=== PATIENT | male | born 1985 | race Caucasian/White ===

== ENCOUNTER 2017-01-06 00:21 | Emergency (ER) | payer BC, OTHER ==
[~2017-01-06] VITALS: Ht 172.7 cm; Wt 95.9 kg
[~2017-01-06 00:21] MED LIST: IBUP-103 PO; MELA1TAB3 PO; OXYC1TAB3 PO; PRED20TA PO
[2017-01-06 00:27] VITALS: TEMP 37; Ht 172.7 cm; Wt 95.9 kg
[2017-01-06] MEDS ORDERED: HYDROCODONE/ACETAMINOPHEN 7.5/325MG TAB PO STA (00:59)
--- NOTE | 2017-01-06 01:01 | EMERGENCY ROOM VISIT NOTE ---
History Report prepared by Svenibandrea: Sraay Landrum Under the Supervision of: Dr. Breanne Gerardo M.D. First contact with patient: 00:53 Chief Complaint: SHOULDER PAIN Stated Complaint: RIGHT SHOULDER PAIN,FEELS COLD History of Present Illness The patient is a 31 year old male who presents to the Emergency Room with complaints of worsening right shoulder pain over the past week. The pain is worse with movement of his right shoulder. He notes that the pain radiates through his right arm. The patient has had right shoulder problems for several months and states his pain is usually a dull ache; however, his pain has been worse over the past week. The patient's work requires frequent lifting of up to 50 pounds. While he was at work last night, his pain worsened significantly. Currently, he notes that his right hand feels slightly cold and his right arm feels somewhat numb. He does not have a history of a dislocation. He has tried taking Advil and Tylenol arthritis for his pain with no relief. Source of History: patient Onset: a week ago Position: shoulder (right) Timing: worsening Modifying Factors (Worsening): movement Associated Symptoms: + numbness (right arm) Note: Other symptoms: cold right hand Review of Systems See HPI for pertinent positives & negatives. A total of 6 systems reviewed and were otherwise negative. Past Medical & Surgical Medical Problems: (1) GI bleed (2) Strep tonsillitis (3) Tonsillar hypertrophy Family History Cancer Diabetes mellitus Heart disease Hypertension Social History Smoking Status: Current Every Day Smoker Alcohol Use: none Drug Use: none Marital Status: single Housing Status: lives alone Occupation Status: employed Current/Historical Medications Scheduled Ibuprofen Tab (Advil), 600 MG PO PRN UD Allergies Coded Allergies: Lactose (Unverified Allergy, Unknown, ., 01/06/17) Shellfish (Unverified Allergy, Unknown, ., 01/06/17) Physical Exam Vital Signs Date Time Temp Pulse Resp B/P Pulse Ox O2 Delivery O2 Flow Rate FiO2 01/06/17 02:25 73 20 156/82 98 01/06/17 00:27 37.0 81 18 137/84 97 Room Air Physical Exam Vital signs reviewed. General: Well-appearing 31 year old male, in no significant distress. HEENT: No scleral icterus, PERRLA, neck supple. Atraumatic. Musculoskeletal: Atraumatic, no peripheral edema. Tender to palpation over the right proximal biceps tendon with limited range of motion to rotator cuff exam due to pain in most directions. Full strength. Neurologic: Patient awake alert and oriented x 3 Skin: Warm, dry, no rash Medical Decision & Procedures ER Provider Diagnostic Interpretation: Right shoulder x-ray 2 view per my interpretation: No fracture, no dislocation. Medications Administered Medications (Trade) Dose Ordered Sig/Coco Route Start Time Stop Time Status Last Admin Dose Admin Acetaminophen/ Hydrocodone Bitart ([place] 7.5/325 Tab) 1 tab NOW STAT PO 01/06/17 00:59 01/06/17 01:01 DC 01/06/17 01:14 1 TAB ED Course 0056: The patient was evaluated in room C3. A complete history and physical examination was performed. 0059: Ordered [place] 7.5/325 1 tab PO. 0228: Upon reevaluation, the patient was resting comfortably. I discussed findings with him. He verbalized agreement of the treatment plan. The patient was discharged home. Medical Decision Differential includes but is not limited to rotator cuff injury, bony fracture, shoulder dislocation, muscular strain, tendonitis, radiculopathy. This patient was evaluated and appeared to be in no significant distress. Patient was medicated with a [place] tablet. X-ray of the shoulder reveals no evidence of acute fracture or dislocation. Patient was given instructions to wear a sling for which he has at home. I suspect the patient is suffering from a tendinopathy or rotator cuff injury. He was given a work note and will follow -up with orthopedic surgery this week. He will return to the ER for worsening of symptoms or any medical concerns. Impression Primary Impression: Right shoulder pain Scribe Attestation The scribe's documentation has been prepared under my direction and personally reviewed by me in its entirety. I confirm that the note above accurately reflects all work, treatment, procedures, and medical decision making performed by me. Departure Information Dispostion Home / Self-Care Referrals Osito Joel M.D. (PCP) Vikas Mckenzie M.D. Patient Instructions My [facility] Additional Instructions Diagnosis: Right shoulder pain Wear your sling to the right arm. Ibuprofen 600 mg every 6 hours as needed for pain with food. Ice and elevate as much as possible. Avoid heavy lifting. Contact [facility] for follow-up appointment Return to the ER for worsening of symptoms or any medical concerns. Problem Qualifiers Primary Impression: Right shoulder pain Chronicity: acute Qualified Codes: M25.511 - Pain in right shoulder
[2017-01-06 02:25] VITALS: BP 156/82; PULSE 73; O2SAT 98
--- NOTE | 2017-01-06 06:58 | DIAGNOSTIC IMAGING REPORT ---
RIGHT SHOULDER MIN 2 VIEWS ROUTINE CLINICAL HISTORY: Right shoulder pain following injury. COMPARISON: Right shoulder radiographs August 10, 2016. FINDINGS: Alignment of the right shoulder is anatomic. No acute fracture is present. Joint spaces are preserved. IMPRESSION: No acute fracture or dislocation of the right shoulder. Electronically signed by: Bryce Patton M.D. 01/06/2017 6:56 AM Dictated Date/Time: 01/06/2017 6:56 AM
== END 2017-01-06 02:31 | disposition home or self-care (01) ==
LOC: C.EDB 00:23 → C.EDC 02:31
DX: M25.511 Pain in right shoulder (principal); F17.210 Nicotine dependence, cigarettes, uncomplicated

== ENCOUNTER → 2017-01-09 | Outpatient (CLI) | payer BC ==
[~2017-01-09] MED LIST changes: -MELA1TAB3 PO; +NAPR500T3 PO; +NAPR550T22 PO; -PRED20TA PO
[2017-01-09 14:39] LABS: BASO % 0.4 %; BASO ABS # 0.04 K/uL (0-0.2); COMPLETE YES; EOS % 1.5 %; HEMATOCRIT 42.7 % (42-52); IG% 0.5 %; LYMPH % 25.5 %; LYMPH ABS # 2.46 K/uL (1.2-3.4); MEAN CELL VOLUME 95.1 fL (80-100); MEAN CORPUSCULAR HEMOGLOBIN 32.3 pg (25-34); MEAN PLATELET VOLUME 10.6 fL (7.4-10.4); MONO % 6.1 %; PLATELET COUNT 217 K/uL (130-400); RED BLOOD COUNT 4.49 M/uL (4.7-6.1); WHITE BLOOD COUNT 9.65 K/uL (4.8-10.8)
[2017-01-09 15:06] LABS: C-REACTIVE PROTEIN < 0.29 mg/dl (0-0.29); RHEUMATOID FACTOR < 10.0 U/mL (0-15); URIC ACID 5.3 mg/dl (2.6-7.2)
[2017-01-14 22:25] LABS: 18KDIGG BAND NONREACTIVE (NONREACTIVE); 23KDIGG BAND NONREACTIVE (NONREACTIVE); 23KDIGM BAND NONREACTIVE (NONREACTIVE); 28KDIGG BAND NONREACTIVE (NONREACTIVE); 30KDIGG BAND NONREACTIVE (NONREACTIVE); 39KDIGG BAND NONREACTIVE (NONREACTIVE); 39KDIGM BAND NONREACTIVE (NONREACTIVE); 41KDIGG BAND REACTIVE (NONREACTIVE); 41KDIGM BAND NONREACTIVE (NONREACTIVE); 45KDIGG BAND NONREACTIVE (NONREACTIVE); 58KDIGG BAND NONREACTIVE (NONREACTIVE); 66KDIGG BAND NONREACTIVE (NONREACTIVE); 93KDIGG BAND NONREACTIVE (NONREACTIVE)
== END | disposition home or self-care (01) ==
LOC: C.LAB 13:41
PROVIDERS: ATTEND Orthopaedic Surgery Sports Medicine
DX: M25.511 Pain in right shoulder (principal)

== ENCOUNTER 2017-08-11 14:03 | Emergency (ER) | payer BC ==
[~2017-08-11] VITALS: Ht 172.7 cm; Wt 93.9 kg
[~2017-08-11 14:03] MED LIST changes: -NAPR500T3 PO; -NAPR550T22 PO; -OXYC1TAB3 PO
[2017-08-11 14:13] VITALS: TEMP 37.1; Ht 172.7 cm; Wt 93.9 kg
[2017-08-11] MEDS ORDERED: OXYCODONE HCL IR 5 MG TAB (IMMEDIATE RELEASE) PO STA (14:50)
[2017-08-11] MEDS ORDERED: NAPR550T22 PO (15:18)
--- NOTE | 2017-08-11 15:18 | DIAGNOSTIC IMAGING REPORT ---
RIGHT SHOULDER 3 VIEWS HISTORY: R shoulder pain COMPARISON: None. FINDINGS: There is no fracture or dislocation. Soft tissues are unremarkable. No radiopaque foreign bodies. The right clavicle is intact. IMPRESSION: No fractures. Electronically signed by: Ignacio Carrasquillo M.D. 08/11/2017 3:17 PM Dictated Date/Time: 08/11/2017 3:16 PM
[2017-08-11] MEDS ORDERED: NAPR500T3 PO (15:28)
[2017-08-11] MEDS ORDERED: OXYC1TAB3 PO (15:28)
[2017-08-11 15:39] VITALS: BP 152/68; PULSE 73; O2SAT 98
--- NOTE | 2017-08-11 17:12 | EMERGENCY ROOM VISIT NOTE ---
History First contact with patient: 14:33 Chief Complaint: SHOULDER PAIN Stated Complaint: REINJURED SHOULDER History of Present Illness The patient is a 32 year old male who presents to the Emergency Room with complaints of an acute right shoulder injury yesterday morning at work. The patient reports that he was moving a 120 pound roll with a metal jake when he felt something pop in the right shoulder. The patient reports generalized shoulder pain, along with tingling and numbness into the ulnar aspect of the right hand. The patient does admit to a prior history of right shoulder problems, and was here in December with similar symptoms. He was seen at [facility], was told that he had osteoarthritis and weak rotator cuff, and was administered a cortisone injection. He underwent PT as well without relief. The patient has been taking naproxen 500 mg twice a day without any significant relief. This was left over from a previous prescription. The patient is [id number], and rates his discomfort an 8 out of 10. Review of Systems 10 system review was performed and was negative except for pertinent positives and negatives as indicated in history of present illness Past Medical/Surgical History Medical Problems: (1) GI bleed (2) Strep tonsillitis (3) Tonsillar hypertrophy Family History Cancer Diabetes mellitus Heart disease Hypertension Social History Smoking Status: Current Every Day Smoker Alcohol Use: none Drug Use: none Marital Status: single Housing Status: lives alone Occupation Status: employed Current/Historical Medications Scheduled Ibuprofen Tab (Advil), 600 MG PO PRN UD Naproxen (Naproxen), 1 TAB PO BID Scheduled PRN Naproxen Sodium (Naprosyn Ds), 550 MG PO BID PRN for Pain Oxycodone Ir (Roxicodone Ir), 1-2 TAB PO Q4H PRN for Pain Allergies Coded Allergies: Lactose (Unverified Allergy, Unknown, ., 01/06/17) Shellfish (Unverified Allergy, Unknown, ., 01/06/17) Physical Exam Vital Signs Date Time Temp Pulse Resp B/P (MAP) Pulse Ox O2 Delivery O2 Flow Rate FiO2 08/11/17 15:39 73 16 152/68 98 08/11/17 14:13 37.1 83 16 163/79 98 Room Air Physical Exam CONSTITUTIONAL: Healthy and well nourished. Alert and oriented X 3 with positive affect. Patient appears in moderate discomfort from pain. HEENT: Normocephalic, atraumatic. Pupils equal, round and reactive. Ears and nares are clear. NECK: Full active range of motion without discomfort. Negative lateral gaze test. He has minimal tenderness to palpation through the right cervical musculature and central cervical spine. RESPIRATORY: Clear to auscultation bilaterally with no wheezing, crackles, rhonchi or stridor. CARDIOVASCULAR: Regular rate and rhythm with no murmurs, rubs or gallops. MUSCULOSKELETAL: Examination shows generalized tenderness to palpation of the entire right shoulder. Range of motion was difficult because of patient discomfort, limited to 45 of abduction and forward flexion. Equal item repair manager strength bilaterally. Positive compression test of the right cubital tunnel, reproducing paresthesias into the right fourth and fifth fingers. INTEGUMENTARY: No rash or other significant dermatologic conditions noted. NEUROLOGIC: Right deltoid sensation is intact. Right hand and fingers are sensory intact. Medical Decision & Procedures ER Provider Diagnostic Interpretation: My interpretation of right shoulder x-rays does not show any obvious fracture, dislocation, separation or destructive lesions of the humeral head. Radiologist report is as follows: RIGHT SHOULDER 3 VIEWS HISTORY: R shoulder pain COMPARISON: None. FINDINGS: There is no fracture or dislocation. Soft tissues are unremarkable. No radiopaque foreign bodies. The right clavicle is intact. IMPRESSION: No fractures. Medications Administered Medications (Trade) Dose Ordered Sig/Coco Route Start Time Stop Time Status Last Admin Dose Admin Oxycodone HCl (Roxicodone Immediate Rel Tab) 5 mg NOW STAT PO 08/11/17 14:50 08/11/17 14:51 DC 08/11/17 15:16 5 MG ED Course Patient history and physical exam were performed. Nurse's notes were reviewed. Vital signs were reviewed and were normal. The patient was administered OxyIR for pain. X-rays of the right shoulder were normal. The patient is currently wearing a sling. He was instructed to wear this only as needed for immediate relief of pain. Otherwise, he was instructed to perform gentle range of motion exercises to prevent stiffness. Ibuprofen and Tylenol in alternating fashion for baseline pain relief. The patient did received prescriptions for naproxen 500 mg twice a day, and OxyIR 5 mg, dispensed #15 with no refills. He was also encouraged to take Tylenol 1 g every 6-8 hours for additional pain relief. The patient was given a note for no use of the right upper extremity until reevaluated by his Worker's Compensation approved orthopedic surgeon. The patient was happy with plan of care, voiced understanding of all discharge instructions, and rated his pain a 4 out of 10 at the conclusion of my exam. Medical Decision [place] Drug Monitoring Program Search Results: patient reviewed within database, no issues identified Impression Primary Impression: Right shoulder injury Additional Impression: Work related injury Departure Information Prescriptions Oxycodone Ir (Roxicodone Ir) 5 Mg Tab 1-2 TAB PO Q4H Y for Pain, #15 TAB For Initial Treatment Prov: Monroe Egan PA 08/11/17 Naproxen (NAPROXEN) 500 Mg Tab 1 TAB PO BID for 7 Days, #14 TAB 1 Refill Prov: Monroe Egan PA 08/11/17 Referrals Osito Joel M.D. (PCP) Patient Instructions My [facility] [address] [facility] Problem Qualifiers Primary Impression: Right shoulder injury Encounter type: initial encounter Qualified Codes: S49.91XA - Unspecified injury of right shoulder and upper arm, initial encounter
== END 2017-08-11 15:41 | disposition home or self-care (01) ==
LOC: C.EDB 14:04 → C.EDD 15:41
DX: S49.91XA Unspecified injury of right shoulder and upper arm, initial encounter (principal); X58.XXXA Exposure to other specified factors, initial encounter; Y92.89 Other specified places as the place of occurrence of the external cause; Y99.0 Civilian activity done for income or pay; F17.200 Nicotine dependence, unspecified, uncomplicated; Z87.19 Personal history of other diseases of the digestive system; Z91.018 Allergy to other foods; Z91.041 Radiographic dye allergy status; Z80.9 Family history of malignant neoplasm, unspecified; Z83.3 Family history of diabetes mellitus; Z82.49 Family history of ischemic heart disease and other diseases of the circulatory system

== ENCOUNTER 2018-02-23 18:53 | Emergency (ER) | payer BC ==
[~2018-02-23] VITALS: Ht 172.7 cm; Wt 95.6 kg
[~2018-02-23 18:53] MED LIST changes: +NAPR-1159 PO; +NAPR-1231 PO
[2018-02-23 19:04] VITALS: TEMP 36.7; Ht 172.7 cm; Wt 95.6 kg
[2018-02-23] MEDS ORDERED: SODIUM CHLORIDE 0.9% 1000ML 1,000 ML IV STA (19:17)
[2018-02-23] MEDS ORDERED: SODIUM CHLORIDE 0.9% 1000ML 1,000 ML IV ONE (19:17)
[2018-02-23 19:51] LABS: BASO % 0.2 %; BASO ABS # 0.02 K/uL (0-0.2); EOS % 3.1 %; EOS ABS # 0.34 K/uL (0-0.5); HEMATOCRIT 42.1 % (42-52); HEMOGLOBIN 14.7 g/dL (14.0-18.0); IG# 0.03 K/uL (0.00-0.02); LYMPH % 32.9 %; LYMPH ABS # 3.58 K/uL (1.2-3.4); MEAN CELL VOLUME 93.3 fL (80-100); MEAN CORPUSCULAR HEMOGLOBIN 32.6 pg (25-34); MEAN CORPUSCULAR HGB CONC 34.9 g/dl (32-36); MONO % 9.2 %; NEUT % 54.3 %; PLATELET COUNT 199 K/uL (130-400); RED CELL DISTRIBUTION WIDTH CV 13.6 % (11.5-14.5); RED CELL DISTRIBUTION WIDTH SD 46.4 fL (36.4-46.3); WHITE BLOOD COUNT 10.87 K/uL (4.8-10.8)
[2018-02-23 20:09] LABS: ALBUMIN 4.2 gm/dl (3.4-5.0); ALT/SGPT 30 U/L (12-78); BLOOD UREA NITROGEN 11 mg/dl (7-18); CALCIUM 9.7 mg/dl (8.5-10.1); CARBON DIOXIDE 29 mmol/L (21-32); CREATININE 0.87 mg/dl (0.60-1.40); GLUCOSE 94 mg/dl (70-99); LIPASE 106 U/L (73-393); SODIUM 136 mmol/L (136-145)
[2018-02-23 20:12] LABS: ALKALINE PHOSPHATASE 80 U/L (45-117); AST/SGOT 17 U/L (15-37); TOTAL PROTEIN 8.3 gm/dl (6.4-8.2)
--- NOTE | 2018-02-23 21:20 | DIAGNOSTIC IMAGING REPORT ---
(TESTICULAR) SCROTUM-CONT CLINICAL HISTORY: 32 years-old Male presenting with left test pain, eval for epidyd, torsion. TECHNIQUE: Real-time grayscale and color and spectral Doppler ultrasound imaging of the scrotum was performed. COMPARISON: None. FINDINGS: Right testis: Normal echogenicity and echotexture. Testis measures 2.1 x 3.8 x 2.1 cm. Normal color Doppler flow and arterial and venous waveforms in the testicular parenchyma. Epididymal head normal. No hydrocele. No varicocele. Left testis: Normal echogenicity and echotexture. Testis measures 3.3 x 5.0 x 2.4 cm. Hyperemic color Doppler flow and elevated arterial and venous waveforms in the testicular parenchyma. Enlarged epididymis. No hydrocele. Varicocele present. Hyperemia of the left testis relative to the right. IMPRESSION: 1. No evidence of testicular torsion. 2. Findings consistent with left epididymitis-orchitis. 3. Left varicocele. Electronically signed by: Natan Andrade M.D. 02/23/2018 9:19 PM Dictated Date/Time: 02/23/2018 9:17 PM
[2018-02-23] MEDS ORDERED: CIPROFLOXACIN 500 MG TAB PO STA (22:13)
[2018-02-23] MEDS ORDERED: CIPR-255 PO (22:15)
[2018-02-23 22:25] VITALS: BP 126/78; PULSE 78; O2SAT 98
--- NOTE | 2018-02-23 22:49 | EMERGENCY ROOM VISIT NOTE ---
History Report prepared by Roro: Marci Lr Under the Supervision of: Dr. Erich Graham M.D. First contact with patient: 19:07 Chief Complaint: ABDOMINAL PAIN Stated Complaint: LOWER ABD PAIN History of Present Illness The patient is a 32 year old male who presents to the Emergency Room with complaints of intermittent left lower abdominal pain starting 3 days ago. The patient states that the pain is worse when he lifts heavy things, movement, and when he tries to have a bowel movement. The patient complains of pain in his left testicle and nausea. The patient denies testicular swelling, urinary symptoms, abnormal bowel movements, back pain, fevers, chills, melena, diarrhea , hematochezia, chest pain, shortness of breath, cough, use of alcohol, and use of drugs. The patient notes he is a smoker. Source of History: patient Onset: 3 days ago Position: abdomen Timing: intermittent Modifying Factors (Worsening): movement, other (lifting heavy things, moving his bowels) Associated Symptoms: + nausea, No fevers, No chills, No cough, No chest pain , No SOB, No back pain, No melena, No hematochezia, No diarrhea, No urinary symptoms Note: The patient complains of pain in his left testicle. The patient denies testicular swelling and abnormal bowel movements. Review of Systems See HPI for pertinent positives & negatives. A total of 10 systems reviewed and were otherwise negative. Past Medical & Surgical Medical Problems: (1) GI bleed (2) Strep tonsillitis (3) Tonsillar hypertrophy Old medical records were reviewed. Nurse's notes were reviewed and I agree with. Family History Cancer Diabetes mellitus Heart disease Hypertension Social History Smoking Status: Current Every Day Smoker Alcohol Use: none Drug Use: none Marital Status: single Housing Status: lives alone Occupation Status: employed Current/Historical Medications Scheduled Ciprofloxacin Hcl (Cipro), 500 MG PO BID Allergies Coded Allergies: Lactose (Unverified Allergy, Unknown, ., 02/23/18) Shellfish (Unverified Allergy, Unknown, ., 02/23/18) Physical Exam Vital Signs Date Time Temp Pulse Resp B/P (MAP) Pulse Ox O2 Delivery O2 Flow Rate FiO2 02/23/18 22:25 78 16 126/78 98 02/23/18 21:31 70 16 121/83 98 Room Air 02/23/18 20:10 72 14 120/86 96 Room Air 02/23/18 19:04 36.7 98 18 151/89 96 Room Air Physical Exam General: Non-ill appearing young male in no acute distress. HEENT: Normal cephalic atraumatic. Pupils are equal round and reactive to light. Extraocular movements are intact. Oropharynx is pink with moist mucous membranes. No swelling of the mouth lips or tongue. Neck: Supple with a midline trachea. No meningeal signs or stiffness, no JVD or bruits. No Stridor. Chest: Clear to auscultation bilaterally. No wheezes or rhonchi. No increased work of breathing. Heart: regular rate and rhythm. Abdomen: Soft nontender, nondistended without rebound guarding or rigidity. : Mildly tender in the left testicle, mostly posteriorly. Left testicle is larger than right which the patient says is chronic. No hernia appreciated. He was examined sitting and standing. Extremities: No cyanosis clubbing or edema. No calf tenderness or assymetry Spine/Back. Non tender to palpation. No CVA tenderness Skin: Good turgor without rashes. Neurologic exam: Cranial nerves two through 12 are intact. Motor and sensation are intact and symmetrical throughout. Medical Decision & Procedures ER Provider Diagnostic Interpretation: Radiology results as stated below per my review and radiologist interpretation: (TESTICULAR) SCROTUM-CONT CLINICAL HISTORY: 32 years-old Male presenting with left test pain, eval for epidyd, torsion. TECHNIQUE: Real-time grayscale and color and spectral Doppler ultrasound imaging of the scrotum was performed. COMPARISON: None. FINDINGS: Right testis: Normal echogenicity and echotexture. Testis measures 2.1 x 3.8 x 2.1 cm. Normal color Doppler flow and arterial and venous waveforms in the testicular parenchyma. Epididymal head normal. No hydrocele. No varicocele. Left testis: Normal echogenicity and echotexture. Testis measures 3.3 x 5.0 x 2.4 cm. Hyperemic color Doppler flow and elevated arterial and venous waveforms in the testicular parenchyma. Enlarged epididymis. No hydrocele. Varicocele present. Hyperemia of the left testis relative to the right. IMPRESSION: 1. No evidence of testicular torsion. 2. Findings consistent with left epididymitis-orchitis. 3. Left varicocele. Electronically signed by: Natan Andrade M.D. 02/23/2018 9:19 PM Dictated Date/Time: 02/23/2018 9:17 PM Laboratory Results 02/23/18 19:36 Red Blood Count 4.51, Mean Corpuscular Volume 93.3, Mean Corpuscular Hemoglobin 32.6, Mean Corpuscular Hemoglobin Concent 34.9, Mean Platelet Volume 10.0, Neutrophils (%) (Auto) 54.3, Lymphocytes (%) (Auto) 32.9, Monocytes (%) (Auto) 9.2, Eosinophils (%) (Auto) 3.1, Basophils (%) (Auto) 0.2, Neutrophils # (Auto) 5.90, Lymphocytes # (Auto) 3.58, Monocytes # (Auto) 1.00, Eosinophils # (Auto) 0.34, Basophils # (Auto) 0.02 02/23/18 19:36 Test 02/23/18 19:20 02/23/18 19:36 Urine Color YELLOW Urine Appearance TURBID (CLEAR) Urine pH 8.0 (4.5-7.5) Urine Specific [place] 1.022 (1.000-1.030) Urine Protein NEG (NEG) Urine Glucose (UA) NEG (NEG) Urine Ketones NEG (NEG) Urine Occult Blood NEG (NEG) Urine Nitrite NEG (NEG) Urine Bilirubin NEG (NEG) Urine Urobilinogen NEG (NEG) Urine Leukocyte Esterase MODERATE (NEG) Urine WBC (Auto) 10-30 /hpf (0-5) Urine RBC (Auto) 5-10 /hpf (0-4) Urine Hyaline Casts (Auto) 1-5 /lpf (0-5) Urine Epithelial Cells (Auto) 10-20 /lpf (0-5) Urine Bacteria (Auto) NEG (NEG) White Blood Count 10.87 K/uL (4.8-10.8) Red Blood Count 4.51 M/uL (4.7-6.1) Hemoglobin 14.7 g/dL (14.0-18.0) Hematocrit 42.1 % (42-52) Mean Corpuscular Volume 93.3 fL (80-100) Mean Corpuscular Hemoglobin 32.6 pg (25-34) Mean Corpuscular Hemoglobin Concent 34.9 g/dl (32-36) Platelet Count 199 K/uL (130-400) Mean Platelet Volume 10.0 fL (7.4-10.4) Neutrophils (%) (Auto) 54.3 % Lymphocytes (%) (Auto) 32.9 % Monocytes (%) (Auto) 9.2 % Eosinophils (%) (Auto) 3.1 % Basophils (%) (Auto) 0.2 % Neutrophils # (Auto) 5.90 K/uL (1.4-6.5) Lymphocytes # (Auto) 3.58 K/uL (1.2-3.4) Monocytes # (Auto) 1.00 K/uL (0.11-0.59) Eosinophils # (Auto) 0.34 K/uL (0-0.5) Basophils # (Auto) 0.02 K/uL (0-0.2) RDW Standard Deviation 46.4 fL (36.4-46.3) RDW Coefficient of Variation 13.6 % (11.5-14.5) Immature Granulocyte % (Auto) 0.3 % Immature Granulocyte # (Auto) 0.03 K/uL (0.00-0.02) Anion Gap 5.0 mmol/L (3-11) Est Creatinine Clear Calc Drug Dose 136.7 ml/min Estimated GFR () 132.4 Estimated GFR (Non- 114.2 BUN/Creatinine Ratio 12.5 (10-20) Calcium Level 9.7 mg/dl (8.5-10.1) Total Bilirubin 0.4 mg/dl (0.2-1) Direct Bilirubin < 0.1 mg/dl (0-0.2) Aspartate Amino Transf (AST/SGOT) 17 U/L (15-37) Alanine Aminotransferase (ALT/SGPT) 30 U/L (12-78) Alkaline Phosphatase 80 U/L (45-117) Total Protein 8.3 gm/dl (6.4-8.2) Albumin 4.2 gm/dl (3.4-5.0) Lipase 106 U/L (73-393) Laboratory studies as stated above per my review. Medications Administered Medications (Trade) Dose Ordered Sig/Coco Route Start Time Stop Time Status Last Admin Dose Admin Sodium Chloride 1,000 ml @ 999 mls/hr Q1H1M STAT IV 02/23/18 19:17 02/23/18 20:17 DC 02/23/18 19:17 999 MLS/HR Sodium Chloride 1,000 ml @ 150 mls/hr Q6H40M ONCE IV 02/23/18 19:17 02/23/18 22:48 DC 02/23/18 19:17 150 MLS/HR Ciprofloxacin (Cipro Tab) 500 mg NOW STAT PO 02/23/18 22:13 02/23/18 22:14 DC 02/23/18 22:21 500 MG ED Course 1908: Past medical records reviewed. The patient was evaluated in room A12B, and a complete history and physical examination were performed. 1916: Ordered NSS 1000 ml @ 150 mls/hr IV, NSS 1000 ml @ 999 mls/hr IV. 2029: I reevaluated the patient and he is awaiting ultra sound. 2209: Upon reevaluation, the patient is resting comfortably. I discussed the results and treatment plan with him. He verbalized agreement of the treatment plan. The patient was discharged home. 2212: Ordered Ciprofloxacin 500 mg PO. Medical Decision Differential diagnoses include epididymitis, torsion, hernia, testicular mass, diverticulitis, UTI. This patient comes in as described above he is having pain in his left testicle. It hurts worse with movement. On exam, he is tender posteriorly along the epididymis. It is slightly larger than the right however he says this is chronic. I do not see any hernia on exam. he is nontoxic non- lethargic. IV access was established and blood work was obtained. He has no significant electrolyte or metabolic abnormalities. Ultrasound shows findings with epididymitis. He is in a monogamous relationship for the last 3 years. He has had no penile lesions or discharge or anything to suggest an STD. I will start him on Cipro 500 mg p.o. as well as a prescription for Cipro twice a day for the next 10 days. he should use ibuprofen for pain and scrotal support. Return if: Increasing pain, fever or chills, worsening of symptoms, any new problems or concerns. He is happy the plan and discharged to home. Medication Reconcilliation Current Medication List: was personally reviewed by me Blood Pressure Screening Patient's blood pressure: Normal blood pressure Blood pressure disposition: Did not require urgent referral Impression Primary Impression: Left epididymitis Scribe Attestation The scribe's documentation has been prepared under my direction and personally reviewed by me in its entirety. I confirm that the note above accurately reflects all work, treatment, procedures, and medical decision making performed by me. Departure Information Dispostion Home / Self-Care Prescriptions Ciprofloxacin Hcl (CIPRO) 500 Mg Tab 500 MG PO BID, #20 TAB Prov: Erich Graham M.D. 02/23/18 Referrals Osito Joel M.D. (PCP) Forms Call Back Authorization, HOME CARE DOCUMENTATION FORM, IMPORTANT VISIT INFORMATION Patient Instructions My [facility] Additional Instructions Rest. Drink plenty of fluids. Use Supportive underwear Use Ibuprofen 400 mg every 6 hours as needed. Take with food Use Cipro 500 mg twice a day for 10 days Follow-up with your doctor on Sunday for recheck Return to the ER over the weekend if: increasing pain, fever or chills, worsening of symptoms, any new problems or concerns
== END 2018-02-23 22:26 | disposition home or self-care (01) ==
LOC: C.EDB 18:54 → C.EDA 22:26
DX: N45.1 Epididymitis (principal); F17.200 Nicotine dependence, unspecified, uncomplicated; I86.1 Scrotal varices

== ENCOUNTER → 2018-03-07 | Outpatient (CLI) | payer BC ==
[~2018-03-07] VITALS: Ht 174 cm; Wt 97.7 kg
[~2018-03-07] MED LIST changes: +CIPR-255 PO; -IBUP-103 PO; -NAPR-1159 PO; -NAPR-1231 PO
[2018-03-07 13:26] VITALS: BP 133/63; PULSE 83; Ht 174 cm; Wt 97.7 kg
== END | disposition home or self-care (01) ==
LOC: C.NEUR 10:37
PROVIDERS: ATTEND Internal Medicine Pulmonary Disease
DX: G47.19 Other hypersomnia (principal); G47.00 Insomnia, unspecified; G47.26 Circadian rhythm sleep disorder, shift work type; F41.8 Other specified anxiety disorders

== ENCOUNTER → 2018-03-12 | Outpatient (CLI) | payer BC ==
--- NOTE | 2018-03-12 08:03 | DIAGNOSTIC IMAGING REPORT ---
THYROID ULTRASOUND CLINICAL HISTORY: Abnormal thyroid exam. COMPARISON STUDY: None. TECHNIQUE: Sonography of the thyroid gland was performed. FINDINGS: The right thyroid lobe measures 7.2 x 3.4 x 2.9 cm and the left lobe measures 6.1 x 3 x 3 cm. The gland is markedly heterogeneous and enlarged. There is a 1.1 cm cystic lesion within the posterior aspect of the midpole the right thyroid lobe. The isthmus measures 0.8 cm in thickness. IMPRESSION: 1. Enlarged, heterogeneous thyroid gland. The appearance is nonspecific but could be seen in the setting of thyroiditis. 2. 1.1 cm cystic lesion within the right thyroid lobe which does not meet criteria for biopsy. Electronically signed by: Bryce Patton M.D. 03/12/2018 8:01 AM Dictated Date/Time: 03/12/2018 7:59 AM
== END | disposition home or self-care (01) ==
LOC: C.ULTR 07:33
PROVIDERS: ATTEND Internal Medicine
DX: R94.6 Abnormal results of thyroid function studies (principal); E07.9 Disorder of thyroid, unspecified

== ENCOUNTER → 2018-04-09 | Outpatient (CLI) | payer BC | END | disposition home or self-care (01) | LOC: C.LABBFT 10:47 | PROVIDERS: ATTEND Nurse Practitioner | DX: E03.9 Hypothyroidism, unspecified (principal) ==

== ENCOUNTER 2018-12-26 12:04 | Inpatient (IN) ==
[2018-12-26] MEDS ORDERED: ASPIRIN CHEW 324 MG PO STA (12:16)
[2018-12-26] MEDS ORDERED: NITROGLYCERIN SL 0.4 MG/TAB TAB SL STA (12:17)
[2018-12-26] MEDS ORDERED: NITROGLYCERIN SL 0.4 MG/TAB TAB ONE (12:19)
[2018-12-26] MEDS ORDERED: TICAGRELOR 90 MG TAB PO ONE (12:27)
[2018-12-26] MEDS ORDERED: HEPARIN SOD (PORCINE) 1000 UNIT/ML 10 ML VIAL ONE (12:28)
[2018-12-26] MEDS ORDERED: MIDAZOLAM HCL 1 MG/ML 2ML VIAL ONE (12:30)
[2018-12-26] MEDS ORDERED: fentaNYL citrate 100 MCG/2 ML VIAL ONE (12:30)
[2018-12-26] MEDS ORDERED: NiCARDipine HCL INJ 2.5 MG/ML 10 ML AMP ONE (12:30)
[2018-12-26] MEDS ORDERED: HEPARIN (PORCINE) 1000 UNIT/ML 10 ML (CATH LAB USE ONLY) ONE (12:30)
[2018-12-26] MEDS ORDERED: NITROGLYCERIN/D5W 100MCG/ML 20ML SYR ONE (12:31)
--- NOTE | 2018-12-26 12:35 | Pre Anesthesia Assessment ---
Date of Service December 26, 2018 Pre Sedation Assessment Vital Signs Temp Pulse Pulse Resp BP BP Pulse Ox 12/26/18 12:28 101 H 15 168/113 H 100 12/26/18 12:25 104 H 23 172/114 H 12/26/18 12:24 100 H 20 179/134 H 100 12/26/18 12:21 99 H 27 H 179/134 H 100 12/26/18 12:20 110 H 22 96 12/26/18 12:14 96 H 27 H 100 12/26/18 12:11 88 30 H 187/121 H 100 12/26/18 12:09 37.3 C 103 H 20 187/121 H 100 Cardiovascular RRR, no murmur, no edema Respiratory normal respiratory effort, lungs clear to auscultation Pre-Sedation Airway Assessment Smoking Status: Current every day smoker Mallampati Class: III Procedure Planning Contraindications for Sedation: none Current Medications Reviewed: Yes Notes The planned sedation has been discussed with the patient. Informed Consent was obtained. I have identified the patient, determined the appropriateness of sedation and have assessed the patient immediately prior to the procedure. All medicine(s) and interventions are by my order.
--- NOTE | 2018-12-26 12:37 | XRay Report ---
XR chest 1V portable CLINICAL HISTORY: Chest Pain COMPARISON STUDY: Chest radiograph June 06, 2011. FINDINGS: Lung volumes are normal. There is no pneumothorax or pleural effusion. There is no consolid ation or evidence for pulmonary edema. Cardiac size is normal. Mediastinal contours are normal. IMPRESSION: No acute cardiopulmonary findings. Electronically signed by: Bryce Patton M.D. 12/26/2018 12:36 PM
[2018-12-26 12:50] LABS: Basophils # (auto) 0.03 K/uL (0-0.2); Basophils % (auto) 0.2 %; Eosinophils # (auto) 0.16 K/uL (0-0.5); Hematocrit (blood only) 46.8 % (42-52); Immature Granulocytes # (auto) 0.05 K/uL (0.00-0.02); Immature Granulocytes % (auto) 0.3 %; Lymphocytes # (auto) 3.41 K/uL (1.2-3.4); Lymphocytes % (auto) 21.7 %; Mean Corpuscular Hgb Conc 34.2 g/dL (32-36); Mean Corpuscular Volume 93.4 fL (80-100); Mean Platelet Volume 10.8 fL (7.4-10.4); Monocytes # (auto) 1.01 K/uL (0.11-0.59); Monocytes % (auto) 6.4 %; Neutrophils # (auto) 11.05 K/uL (1.4-6.5); Neutrophils % (auto) 70.4 %; Platelet Count 220 K/uL (130-400); RDW Coefficient of Variation 13.7 % (11.5-14.5); RDW Standard Deviation 46.7 fL (36.4-46.3); Red Blood Count 5.01 M/uL (4.7-6.1); White Blood Count 15.71 K/uL (4.8-10.8)
--- NOTE | 2018-12-26 12:51 | Consultation Report ---
DATE OF CONSULTATION: 12/26/2018 CONSULTATION REQUESTED BY: Emergency Department/Heart Alert. REASON FOR CONSULTATION: Heart alert. HISTORY OF PRESENT ILLNESS: Mr. Delgado is a 33-year-old man without any significant past medical history who presented to the Emergency Department today with stuttering chest pain and 1-hour persistent chest pain with numbness radiating down his left arm. In the ED, the patient was noted on initial EKG to have more than [address] elevations anteriorly and a heart alert was activated. At time of arrival, the patient was having active chest pain, 710. He was hypertensive in the 160s, satting greater than 90% on 2 liters nasal cannula. The patient endorses stuttering chest pain over the last week or so, states he was unable to do his job as normal due to chest pain and dizziness 3 days ago. More recently, he has been having chest pain at rest over the last 24 hours. PAST MEDICAL HISTORY: None. FAMILY HISTORY: Mother had an FL in her 50s. Multiple family members with "aneurysms." SOCIAL HISTORY: He is an active smoker. Denies heavy alcohol. Works in a plastic factory. Has a live-in girlfriend. MEDICATIONS: None. ALLERGIES: None. PHYSICAL EXAMINATION: VITAL SIGNS: Temperature 37.3, blood pressure 168/113. He is satting 100% on 2 liters. His pulse was 101. GENERAL: The patient appeared acutely ill and uncomfortable. HEENT: Sclerae are anicteric. Oropharynx is clear. LUNGS: Clear to auscultation bilaterally. HEART: He was tachycardic with no murmurs. ABDOMEN: Soft, nontender. EXTREMITIES: Warm. He had intact 2+ radial pulses bilaterally. NEUROLOGIC: Nonfocal. LABORATORY DATA: Labs pending. EKG as discussed above. Chest x-ray showed no acute cardiopulmonary process. IMPRESSION AND PLAN: Anterior ST elevation myocardial infarction. The patient is here with stuttering chest pain for more than a week and now persistent pain for the last hour. He has impressive anterior ST elevations and we will plan to proceed with emergent cardiac catheterization in the setting of suspected acute FL. Risks, benefits and alternative of the procedure were discussed with the patient and willing to proceed. Further recommendations pending findings of coronary angiography.
[2018-12-26 12:57] LABS: Albumin Level 4.5 gm/dl (3.4-5.0); BUN Creatinine Ratio 12.1 (10-20); Calcium 9.5 mg/dl (8.5-10.1); Creatinine Clr Calc Pharmacy 117.4 ml/min; Est GFR (African American) 112.7; Est GFR (Non-African American) 97.3; Potassium 3.5 mmol/L (3.5-5.1)
[2018-12-26 13:01] LABS: Partial Thromboplastin Ratio 1.1; Partial Thromboplastin Time 27.8 Seconds (21.0-31.0)
[2018-12-26 13:06] LABS: Albumin Globulin Ratio 1.1 (0.9-2); Bilirubin,Total 0.6 mg/dl (0.2-1); Globulin 4.2 gm/dl (2.5-4.0); Total Protein 8.7 gm/dl (6.4-8.2); Troponin I 0.88 ng/ml (0-0.045)
[2018-12-26] MEDS ORDERED: ICU PROTOCOL FOR HYPERGLYCEMIA PRN (13:35)
[2018-12-26] MEDS ORDERED: SODIUM CHLORIDE 0.9% 1000ML 1,000 ML IV SCH (13:45)
[2018-12-26] MEDS ORDERED: ACETAMINOPHEN 325 MG TAB PO PRN (13:52)
--- NOTE | 2018-12-26 13:52 | Cardiac Catheterization ---
Cardiac Cath Procedure Full Procedure Date December 26, 2018 Pre-Procedure Diagnosis Pre-Procedure Diagnosis: STEMI AUC Score AUC Score: 9 Post-Procedure Diagnosis Post-Procedure Diagnosis: Severe CAD, Successful PCI and Normal Intracardiac Pressures Procedure(s) Performed Procedure(s) Performed: Coronary Angiography, Left Heart Cath, Drug Eluting Stent and IVUS Paving Block Cutter Osito Mooney MD Finisher Hand(s) Parveen Estimated Blood Loss Estimated Blood Loss: 15 Medication(s) Medication(s): Fentanyl, Heparin, Lidocaine 1%, Nicardipine, Nitroglycerin and Versed Medication(s): Ticagrelor Summary of Findings Indication: STEMI/Heart Alert Access: 6 [place] right radial artery Catheters: EBU 3.5 guide, JR4 diagnostic catheter Findings: LM -large caliber vessel, luminal irregularity LAD -acute 100% proximal occlusion just after takeoff of small first diagonal Circumflex -dominant, large caliber vessel, 30% mid segment disease, distal luminal irregularities, 20% proximal disease in large caliber OM3, small left PDA with luminal irregularities RCA -small, nondominant LVEDP -14 -- PCI -- Antithrombotic therapy: Heparin, ticagrelor Procedure: Left main cannulated with EBU 3.5 guide BMW wire passed across lesion into distal vessel Proximal occlusion predilated with 2.5 compliant balloon Pro-water wire placed into second diagonal and LAD from proximal to mid dilated with 2.5 balloon IVUS used to assess extent of LAD disease, degree of calcification, heavily calcified disease extending past takeoff of second diagonal Dilated lesion stented with 4.0 x 34 mm Inocencio drug-eluting stent Pro-water wire replaced with aeroplane pilot 50 wire Stent post-dilated with 4.5 noncompliant balloon IC vasodilators administered for spasm Post procedure SYL 3 flow, stent well expanded with minimal residual stenosis and no apparent cardiac complications. Arterial Closure: TR band Summary: 1. Anterior STEMI/Occluded proximal LAD 2. Mild to moderate non-culprit coronary artery disease -30-40% mid large dominant circumflex 3. Normal intracardiac filling pressure 4. Successful PCI of proximal to mid LAD with single drug-eluting stent (4.0 x 34 mm Spencer; postdilated with 4.5 NC). Recommendations: Admit to ICU for continued monitoring Loaded with ticagrelor 180 mg in cardiac cath rn Continue dual-antiplatelet therapy for at least 1 year. Trend troponins until peak, Check Echo Uptitrate beta-juan miguel/JEREMY as BP allows High-dose statin Consult cardiac Rehab Smoking cessation Hemodynamics Rest Ao:: 143/94/119 Final Ao: 138/105/123 LV: 128/14 Recommendations Recommendations: PCI without planned CABG Specimens Specimens: None Radiation Exposure (mGy) 3295 Contrast (mls) 125 Fluids (cc crystalloids) Fluids (cc crystalloids): 88 Drains Drains: None Anesthesia Moderate Procedural Complication(s) None Disposition ICU ACC Data: Information Services Vice President Cardiac Status Clinical evaluation leading to the procedure CAD Presenation: STEMI Anginal Classification: CCS IV Heart Failure: No Cardiogenic Shock within 24 Hours: No Cardiac Arrest within 24 Hours: No Imaging Studies Past 6 Months: No Stress Studies Past 6 Months: No Diagnostic Physicians Name: Osito Mooney MD Status: Emergency Closure Device Percutaneous Entry Location: Radial Closure Device: Radial Band Recommendations: PCI without planned CABG PCI Indication: Immediate PCI for STEMI First Noted: First EKG Lesion Segment Name: Proximal LAD Culprit Artery: Yes Stenosis Prior to Rx (%): 100 Chronic Total Occlusion: No IVUS: Yes FFR: No Pre-Procedure SYL Flow: 0 Previously Treated Lesion: No Lesion Complexity: High/C Lesion Length (mm): 30 Thrombus Present: Yes Bifurcation Lesion: Yes Guidewire Across Lesion: Stenosis Post-Procedure (%): 0 Post-Procedure SYL Flow : 3 Devices(s) Deployed: Yes Yes Intraprocedure Events Significant Disection: No Perforation: No
[2018-12-26 15:13] LABS: iSTAT Blood Urea Nitrogen 13 mg/dl (7-18); iSTAT Carbon Dioxide 24 mEq/l (24-31); iSTAT Ionized Calcium 1.18 mmol/l (1.12-1.32)
[2018-12-26] MEDS ORDERED: MoRPHine SULFATE 4 MG/ML 1 ML CARP\\VIAL IV STA (16:02)
[2018-12-26] MEDS ORDERED: MoRPHine SULFATE 4 MG/ML 1 ML CARP\\VIAL ONE (16:03)
[2018-12-26] MEDS ORDERED: Nursing to Pharmacy Communication ONE (16:03)
[2018-12-26] MEDS: METOPROLOL TARTRATE 25 MG TAB PO SCH (16:09)
--- NOTE | 2018-12-26 17:22 | Critical Care Consultation ---
Date of Consultation December 26, 2018 Assessment & Plan (1) Admitted to intensive care unit: The patient had cardiac catheterization done. It was revealed that he has got severe coronary artery disease, successful PCI and normal intracardiac pressures. He had coronary angiography, left heart cath, drug-eluting stent and IVUS. He had following findings. 1. Anterior STEMI/Occluded proximal LAD 2. Mild to moderate non-culprit coronary artery disease -30-40% mid large dominant circumflex 3. Normal intracardiac filling pressure 4. Successful PCI of proximal to mid LAD with single drug-eluting stent (4.0 x 34 mm Inocencio; postdilated with 4.5 NC). Recommendations: Admit to ICU for continued monitoring Loaded with ticagrelor 180 mg in supervisor laboratory Continue dual-antiplatelet therapy for at least 1 year. Trend troponins until peak, Check Echo Uptitrate beta-juan miguel/JEREMY as BP allows High-dose statin Consult cardiac Rehab Smoking cessation. We are going to continue with current management and plan of care as prescribed. Dictated by . History of Present Illness Reason for Consultation: Anterior ST elevation myocardial infarction. Status post coronary angiography, left heart cath, drug eluting stent and IVUS. Attending Physician: Osito Mooney MD History of Present Illness Mr. Delgado is a 33-year-old man without any significant past medical history who presented to the Emergency Department today with stuttering chest pain and 1-hour persistent chest pain with numbness radiating down his left arm. In the ED, the patient was noted on initial EKG to have more than [address] elevations anteriorly and a heart alert was activated. At time of arrival, the patient was having active chest pain, 7/10. He was hypertensive in the 160s, satting greater than 90% on 2 liters nasal cannula. The patient is status post cardiac cath and a stent placement and currently he is resting comfortably. He feels that his pain the chest pain radiating to the left arm has improved significantly after the cardiac cath and a stent placement. He has minimal shortness of breath and some chest pain especially with deep breathing. Denies having any headache dizziness or syncopal episode. Also denies having any nausea or vomiting or abdominal pain. Allergies Allergy/AdvReac Type Severity Reaction Status Date / Time lactose Allergy Unknown . Unverified 02/23/18 19:24 shellfish derived Allergy Unknown . Unverified 02/23/18 19:24 Home Medications Home Medications Medication Instructions Recorded Confirmed Type CIPROFLOXACIN HCL (CIPRO) 500 mg PO BID #20 tab 02/23/18 Rx Patient History Medical History No known health problems Surgical History No history of previous surgery Family History Other Aneurysm Cancer Diabetes Heart disease Hypertension Social History Current Living Situation: Significant Other Other Information That Helps Us Care for You: No Feels Safe at Home: Yes Safety Concerns: Feels Safe At This Time Smoking Status: Current every day smoker Tobacco Type: cigarettes Do You Dip or Chew Tobacco: No Second Hand Exposure: Yes Tobacco Cessation Education Requested by Patient: No Hx Alcohol Use: No Hx Substance Use: No Beliefs That Will Affect Care: None Communication Ability: Effective Winding Department Supervisor Required: No Review of Systems Total 12 systems reviewed and they are negative except mentioned as above in history. Physical Exam 2 Vital Signs (Past 24 Hours): Last Vital Signs Temp 36.7 C 12/26/18 14:32 Pulse 93 H 12/26/18 16:30 Resp 17 12/26/18 16:30 BP 164/108 H 12/26/18 16:30 Pulse Ox 98 12/26/18 16:30 Physical Exam: GENERAL: Young male resting comfortably in the bed not in any acute distress and currently he is pain-free after the procedure. HEENT. Pupils are reactive to light. There is no cervical or supraclavicular adenopathy. NECK. Neck is supple, no JVD, no lymphadenopathy. RESPIRATORY: Bilateral good air entry, no wheezing, no crackles, no rhonchi heard. CARDIOVASCULAR: S1-S2 heard. No murmur no rub no gallops heard. CHEST: No abnormalities were detected. GASTROINTESTINAL/ABDOMEN: Abdomen is soft, nontender, bowel sounds are positive , no mass felt. MUSCULOSKELETAL: No clubbing no edema nontender calf muscles. SKIN: No rash, no lesion seen. NEUROLOGIC: The patient is alert, awake, oriented x3 and moving all his extremities. PSYCHIATRIC: The patient is cooperative and not anxious. LYMPHATIC: No cervical or supraclavicular or inguinal lymph nodes detected. Results & Data Laboratory Results Abnormal lab results 12/26/18 12/26/18 12/26/18 Range/Units 12:14 12:14 12:26 WBC 15.71 H (4.8-10.8) K/uL RDW Std Deviation 46.7 H (36.4-46.3) fL MPV 10.8 H (7.4-10.4) fL Immature Gran # (Auto) 0.05 H (0.00-0.02) K/uL Neut # (Auto) 11.05 H (1.4-6.5) K/uL Lymph # (Auto) 3.41 H (1.2-3.4) K/uL [place] # (Auto) 1.01 H (0.11-0.59) K/uL Sodium 134 L (136-145) mmol/L Glucose 109 H (70-99) mg/dl POC Glucose (70-99) POC Troponin I 0.65 H (0-0.045) ng/ml Troponin I 0.880 H* (0-0.045) ng/ml Total Protein 8.7 H (6.4-8.2) gm/dl Globulin 4.2 H (2.5-4.0) gm/dl 12/26/18 12/26/18 Range/Units 12:29 15:37 WBC (4.8-10.8) K/uL RDW Std Deviation (36.4-46.3) fL MPV (7.4-10.4) fL Immature Gran # (Auto) (0.00-0.02) K/uL Neut # (Auto) (1.4-6.5) K/uL Lymph # (Auto) (1.2-3.4) K/uL [place] # (Auto) (0.11-0.59) K/uL Sodium (136-145) mmol/L Glucose (70-99) mg/dl POC Glucose 124 H 130 H (70-99) POC Troponin I (0-0.045) ng/ml Troponin I (0-0.045) ng/ml Total Protein (6.4-8.2) gm/dl Globulin (2.5-4.0) gm/dl Diagnostic Findings XR chest 1V portable CLINICAL HISTORY: Chest Pain COMPARISON STUDY: Chest radiograph June 06, 2011. FINDINGS: Lung volumes are normal. There is no pneumothorax or pleural effusion. There is no consolidation or evidence for pulmonary edema. Cardiac size is normal. Mediastinal contours are normal. IMPRESSION: No acute cardiopulmonary findings. Electronically signed by: Bryce Patton M.D. 12/26/2018 12:36 PM ECG Additional Comments: In the ED, the patient was noted on initial EKG to have more than [address] elevations anteriorly and a heart alert was activated.
[2018-12-26] MEDS ORDERED: HydrALAZINE HCL 20 MG/ML VIAL ONE (17:36)
[2018-12-26] MEDS ORDERED: LORazepam 0.5 MG TAB ONE (17:37)
[2018-12-26] MEDS: LISINOPRIL 5 MG TAB PO SCH (17:39)
[2018-12-26] MEDS ORDERED: MoRPHine SULFATE 4 MG/ML 1 ML CARP\\VIAL IV PRN (18:03)
[2018-12-26] MEDS ORDERED: LORazepam 0.5 MG TAB PO PRN (18:03)
[2018-12-26] MEDS ORDERED: HydrALAZINE HCL 20 MG/ML VIAL IV STA (18:03)
[2018-12-26] MEDS ORDERED: ONDANSETRON INJ 2 MG/ML 2 ML VIAL ONE (18:16)
[2018-12-26] MEDS ORDERED: PROMETHAZINE HCL 12.5 MG in SODIUM CHLORIDE 0.9% 50 ML IV STA ×2 (18:29→18:32)
[2018-12-26] MEDS ORDERED: ONDANSETRON INJ 2 MG/ML 2 ML VIAL IV ONE (18:30)
--- NOTE | 2018-12-26 19:11 | Emergency Department Note ---
Entered by Rohith Champion acting as a scribe for Erich Graham MD History of Present Illness General Chief complaint: Chest Pain Stated complaint: chest pain tingling left arm jaw Time Seen by Provider: 12/26/18 12:15 Source: patient and family History of Present Illness Onset (ago): hour(s) (09:30 this morning, then returned between 10:30-11:00) Location: chest Radiation: other (jaw, back, arm) Pain Consistency: + other (now constant) Current Pain Intensity: 2 (chest) Quality: + other (tightness) Relieved By: + other (temporarily by "steady breathing") Associated symptoms: + shortness of breath Treatments prior to arrival: none The patient is a 33 year old male who presents to the Emergency Room with complaints of chest tightness. The patient reports that his symptoms started at 09:30 this morning and were temporarily alleviated with steady breathing, but they returned between 10:30-11:00 this morning and are now constant. He states that his pain radiates to his back, jaw, and arm. He rates his back pain at 3 or 4/10 and his chest pain at about 2/10 currently. He reports that he has also been short of breath. He denies a cardiac history or other medical problems. He reports that he smokes. He denies use of alcohol, recreational drugs, or recent injuries. Family notes that he has felt off and run-down recently. The patient notes that he did not receive any medications prior to arrival and came via triage. 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 Home Medications Home Medications Medication Instructions Recorded Confirmed Type CIPROFLOXACIN HCL (CIPRO) 500 mg PO BID #20 tab 02/23/18 Rx Allergies Allergy/AdvReac Type Severity Reaction Status Date / Time lactose Allergy Unknown . Unverified 02/23/18 19:24 shellfish derived Allergy Unknown . Unverified 02/23/18 19:24 Past Med/Surg History Medical History No known health problems Surgical History No history of previous surgery Family History Other Aneurysm Cancer Diabetes Heart disease Hypertension Social History Current Living Situation: Significant Other Other Information That Helps Us Care for You: No Feels Safe at Home: Yes Safety Concerns: Feels Safe At This Time Smoking Status: Current every day smoker Tobacco Type: cigarettes Do You Dip or Chew Tobacco: No Second Hand Exposure: Yes Tobacco Cessation Education Requested by Patient: No Hx Alcohol Use: No Hx Substance Use: No Beliefs That Will Affect Care: None Communication Ability: Effective Vp Mobile Products Required: No Review of Systems See HPI for pertinent positives & negatives. and A total of 10 systems reviewed and were otherwise negative Physical Exam Vital Signs Vital Signs - 24 hr 12/26/18 12:09 12/26/18 12:11 12/26/18 12:14 Temperature 37.3 C Temperature Source Oral Sepsis Recent Fever Within 48 Hours No Sepsis Action Taken by Nursing No Action Required Pulse Rate 103 H 88 96 H Pulse Rate [Right Finger] Pulse Rhythm [Right Finger] Pulse Strength [Right Finger] Respiratory Rate 20 30 H 27 H Respiratory Effort / Characteristics Non-Labored Respiratory Depth Normal Respiratory Pattern Blood Pressure 187/121 H 187/121 H Blood Pressure [Left Arm] Blood Pressure Mean 143 143 Blood Pressure Mean [Left Arm] Blood Pressure Position [Left Arm] Pulse Oximetry 100 100 100 Oxygen Delivery Method Room Air Oxygen Flow Rate 12/26/18 12:20 12/26/18 12:21 12/26/18 12:24 Temperature Temperature Source Sepsis Recent Fever Within 48 Hours Sepsis Action Taken by Nursing Pulse Rate 110 H 99 H Pulse Rate [Right Finger] 100 H Pulse Rhythm [Right Finger] Pulse Strength [Right Finger] Respiratory Rate 22 27 H 20 Respiratory Effort / Characteristics Respiratory Depth Normal Respiratory Pattern Blood Pressure 179/134 H Blood Pressure [Left Arm] 179/134 H Blood Pressure Mean 149 Blood Pressure Mean [Left Arm] 149 Blood Pressure Position [Left Arm] Pulse Oximetry 96 100 100 Oxygen Delivery Method Oxygen Flow Rate 2 12/26/18 12:25 12/26/18 12:28 12/26/18 12:29 Temperature Temperature Source Sepsis Recent Fever Within 48 Hours Sepsis Action Taken by Nursing Pulse Rate 104 H 101 H 95 H Pulse Rate [Right Finger] Pulse Rhythm [Right Finger] Pulse Strength [Right Finger] Respiratory Rate 23 15 27 H Respiratory Effort / Characteristics Respiratory Depth Respiratory Pattern Blood Pressure 172/114 H 168/113 H Blood Pressure [Left Arm] Blood Pressure Mean 133 131 Blood Pressure Mean [Left Arm] Blood Pressure Position [Left Arm] Pulse Oximetry 100 Oxygen Delivery Method Nasal Cannula Nasal Cannula Oxygen Flow Rate 2 2 12/26/18 12:30 12/26/18 12:31 12/26/18 12:32 Temperature Temperature Source Sepsis Recent Fever Within 48 Hours Sepsis Action Taken by Nursing Pulse Rate 118 H 99 H 99 H Pulse Rate [Right Finger] Pulse Rhythm [Right Finger] Pulse Strength [Right Finger] Respiratory Rate 21 28 H 32 H Respiratory Effort / Characteristics Respiratory Depth Respiratory Pattern Blood Pressure 157/110 H Blood Pressure [Left Arm] Blood Pressure Mean 125 Blood Pressure Mean [Left Arm] Blood Pressure Position [Left Arm] Pulse Oximetry Oxygen Delivery Method Oxygen Flow Rate 12/26/18 14:00 12/26/18 14:15 12/26/18 14:26 Temperature Temperature Source Sepsis Recent Fever Within 48 Hours Sepsis Action Taken by Nursing Pulse Rate 100 H 119 H Pulse Rate [Right Finger] Pulse Rhythm [Right Finger] Pulse Strength [Right Finger] Respiratory Rate 11 L 16 Respiratory Effort / Characteristics Respiratory Depth Respiratory Pattern Blood Pressure 144/85 H Blood Pressure [Left Arm] Blood Pressure Mean 104 Blood Pressure Mean [Left Arm] Blood Pressure Position [Left Arm] Pulse Oximetry 99 100 Oxygen Delivery Method Room Air Oxygen Flow Rate 12/26/18 14:30 12/26/18 14:32 12/26/18 14:45 Temperature 36.7 C Temperature Source Oral Sepsis Recent Fever Within 48 Hours Sepsis Action Taken by Nursing Pulse Rate 101 H 92 H 97 H Pulse Rate [Right Finger] 93 H Pulse Rhythm [Right Finger] Regular Pulse Strength [Right Finger] Normal Respiratory Rate 1 L 10 L 14 Respiratory Effort / Characteristics Non-Labored Respiratory Depth Normal Respiratory Pattern Regular Blood Pressure 134/88 Blood Pressure [Left Arm] 134/88 Blood Pressure Mean 103 Blood Pressure Mean [Left Arm] 103 Blood Pressure Position [Left Arm] Pulse Oximetry 98 99 97 Oxygen Delivery Method Room Air Oxygen Flow Rate 12/26/18 15:00 12/26/18 15:30 12/26/18 15:39 Temperature Temperature Source Sepsis Recent Fever Within 48 Hours Sepsis Action Taken by Nursing Pulse Rate 97 H 100 H 99 H Pulse Rate [Right Finger] Pulse Rhythm [Right Finger] Pulse Strength [Right Finger] Respiratory Rate 14 39 H 17 Respiratory Effort / Characteristics Respiratory Depth Respiratory Pattern Blood Pressure 148/86 H 158/105 H 147/107 H Blood Pressure [Left Arm] Blood Pressure Mean 106 122 120 Blood Pressure Mean [Left Arm] Blood Pressure Position [Left Arm] Pulse Oximetry 98 99 99 Oxygen Delivery Method Oxygen Flow Rate 12/26/18 15:56 12/26/18 15:59 12/26/18 16:00 Temperature Temperature Source Sepsis Recent Fever Within 48 Hours Sepsis Action Taken by Nursing Pulse Rate 96 H 97 H 96 H Pulse Rate [Right Finger] Pulse Rhythm [Right Finger] Pulse Strength [Right Finger] Respiratory Rate 16 22 18 Respiratory Effort / Characteristics Respiratory Depth Respiratory Pattern Blood Pressure 155/106 H 161/109 H 146/99 H Blood Pressure [Left Arm] Blood Pressure Mean 122 126 114 Blood Pressure Mean [Left Arm] Blood Pressure Position [Left Arm] Pulse Oximetry 99 99 99 Oxygen Delivery Method Oxygen Flow Rate 12/26/18 16:02 12/26/18 16:17 12/26/18 16:30 Temperature Temperature Source Sepsis Recent Fever Within 48 Hours Sepsis Action Taken by Nursing Pulse Rate 98 H 96 H 93 H Pulse Rate [Right Finger] Pulse Rhythm [Right Finger] Pulse Strength [Right Finger] Respiratory Rate 13 16 17 Respiratory Effort / Characteristics Respiratory Depth Respiratory Pattern Blood Pressure 156/111 H 164/108 H Blood Pressure [Left Arm] Blood Pressure Mean 126 126 Blood Pressure Mean [Left Arm] Blood Pressure Position [Left Arm] Pulse Oximetry 98 99 98 Oxygen Delivery Method Oxygen Flow Rate 12/26/18 16:42 12/26/18 17:00 12/26/18 17:13 Temperature Temperature Source Sepsis Recent Fever Within 48 Hours Sepsis Action Taken by Nursing Pulse Rate 92 H 89 96 H Pulse Rate [Right Finger] Pulse Rhythm [Right Finger] Pulse Strength [Right Finger] Respiratory Rate 22 17 18 Respiratory Effort / Characteristics Respiratory Depth Respiratory Pattern Blood Pressure 158/107 H 158/94 H 163/109 H Blood Pressure [Left Arm] Blood Pressure Mean 124 115 127 Blood Pressure Mean [Left Arm] Blood Pressure Position [Left Arm] Pulse Oximetry 98 99 99 Oxygen Delivery Method Oxygen Flow Rate 12/26/18 17:14 12/26/18 17:20 12/26/18 17:24 Temperature Temperature Source Sepsis Recent Fever Within 48 Hours Sepsis Action Taken by Nursing Pulse Rate 94 H 94 H 94 H Pulse Rate [Right Finger] Pulse Rhythm [Right Finger] Pulse Strength [Right Finger] Respiratory Rate 14 25 H 25 H Respiratory Effort / Characteristics Respiratory Depth Respiratory Pattern Blood Pressure 172/107 H 171/115 H Blood Pressure [Left Arm] Blood Pressure Mean 128 133 Blood Pressure Mean [Left Arm] Blood Pressure Position [Left Arm] Pulse Oximetry 99 100 100 Oxygen Delivery Method Oxygen Flow Rate 12/26/18 17:30 12/26/18 17:59 12/26/18 18:02 Temperature Temperature Source Sepsis Recent Fever Within 48 Hours Sepsis Action Taken by Nursing Pulse Rate 99 H Pulse Rate [Right Finger] 102 H 88 Pulse Rhythm [Right Finger] Regular Pulse Strength [Right Finger] Normal Respiratory Rate 23 26 H Respiratory Effort / Characteristics Non-Labored Respiratory Depth Respiratory Pattern Regular Blood Pressure 168/116 H Blood Pressure [Left Arm] 140/80 147/82 H Blood Pressure Mean 133 Blood Pressure Mean [Left Arm] 100 103 Blood Pressure Position [Left Arm] Lying Pulse Oximetry 99 Oxygen Delivery Method Oxygen Flow Rate General: Uncomfortable appearing young male complaining of chest, back and arm pain. HEENT: Normal cephalic atraumatic. Pupils are equal round and reactive to light. Extraocular movements are intact. Oropharynx is pink with moist mucous membranes. No swelling of the mouth lips or tongue. Neck: Supple with a midline trachea. No meningeal signs or stiffness, no JVD or bruits. No Stridor. Chest: Clear to auscultation bilaterally. No wheezes or rhonchi. No increased work of breathing. Heart: regular rate and rhythm. Abdomen: Soft nontender, nondistended without rebound guarding or rigidity. Extremities: No cyanosis clubbing or edema. No calf tenderness or assymetry Spine/Back. Non tender to palpation. No CVA tenderness Skin: Good turgor without rashes. Neurologic exam: Cranial nerves two through 12 are intact. Motor and sensation are intact and symmetrical throughout. Course 1211: Past medical records reviewed. The patient was evaluated in room C12B, and a complete history and physical examination were performed. A heart alert was called. 1218: The patient was given aspirin. 1223: I consulted Dr. Vinicio Chavez Cardiology outside of the patients room. He went to evaluate the patient. 1228: The patient's BSG is 124. 1332: The patient is being taken to the catheterization lab. Consultations Consultation #1: I consulted Dr. Vinicio Chavez Cardiology outside of the patients room. He went to evaluate the patient. Time: 12:23 Administered Medications Sodium Chloride (Nss 1000ml) 1,000 mls @ 100 mls/hr IV .Q10H [facility] Stop: 12/26/18 21:14 Last Admin: 12/26/18 15:21 Dose: 100 mls/hr Lisinopril (Zestril) 5 mg PO QAM [facility] Stop: 01/26/19 08:59 Last Admin: 12/26/18 17:39 Dose: 5 mg Metoprolol Tartrate (Lopressor) 25 mg PO BID [facility] Stop: 01/25/19 20:59 Last Admin: 12/26/18 16:09 Dose: 25 mg Discontinued Medications Aspirin (Aspirin) 324 mg PO NOW STA Stop: 12/26/18 12:17 Last Admin: 12/26/18 12:20 Dose: 324 mg Fentanyl Citrate (Fentanyl Citrate) Confirm Administered Dose 100 mcg .ROUTE .STK-MED ONE Stop: 12/26/18 12:31 Last Increment: 12/26/18 13:33 Dose: 50 mcg Heparin Sodium (Porcine) (Heparin Iv Bolus) Confirm Administered Dose 10,000 units .ROUTE .STK-MED ONE Stop: 12/26/18 12:29 Last Admin: 12/26/18 12:32 Dose: 5,000 units Heparin Sodium (Porcine) (Heparin Iv Bolus (Vp Site Use Only)) Confirm Administered Dose 10,000 units .ROUTE .STK-MED ONE Stop: 12/26/18 12:31 Last Admin: 12/26/18 13:34 Dose: 4,000 units Heparin Sodium/Sodium Chloride (Heparin Sod/Nss 2 Units/Ml) Confirm Administered Dose 3,000 units IV .STK-MED ONE Stop: 12/26/18 12:31 Last Admin: 12/26/18 13:34 Dose: 3,000 units Hydralazine HCl (Hydralazine Hcl) Confirm Administered Dose 20 mg .ROUTE .STK- MED ONE Stop: 12/26/18 17:37 Last Increment: 12/26/18 17:39 Dose: 10 mg Hydralazine HCl (Hydralazine Hcl) 10 mg IV NOW STA Stop: 12/26/18 18:04 Last Admin: 12/26/18 18:43 Dose: Not Given Promethazine HCl 12.5 mg/ (Sodium Chloride) 50.5 mls @ 202 mls/hr IV NOW STA Stop: 12/26/18 18:46 Last Admin: 12/26/18 18:40 Dose: 202 mls/hr Lorazepam (Ativan) Confirm Administered Dose 0.5 mg .ROUTE .STK-MED ONE Stop: 12/26/18 17:38 Last Admin: 12/26/18 17:39 Dose: 0.5 mg Midazolam HCl (Versed) Confirm Administered Dose 2 mg .ROUTE .STK-MED ONE Stop: 12/26/18 12:31 Last Admin: 12/26/18 13:34 Dose: 2 mg Morphine Sulfate (Morphine Sulfate) Confirm Administered Dose 4 mg .ROUTE .STK- MED ONE Stop: 12/26/18 16:04 Last Admin: 12/26/18 16:09 Dose: 4 mg Morphine Sulfate (Morphine Sulfate) 2 mg IV NOW STA Stop: 12/26/18 16:03 Last Admin: 12/26/18 16:21 Dose: Not Given Nicardipine HCl (Cardene) Confirm Administered Dose 25 mg .ROUTE .STK-MED ONE Stop: 12/26/18 12:31 Last Admin: 12/26/18 13:33 Dose: 25 mg Nitroglycerin (Nitrostat) Confirm Administered Dose 0.4 mg .ROUTE .STK-MED ONE Stop: 12/26/18 12:20 Last Admin: 12/26/18 12:21 Dose: Not Given Nitroglycerin (Nitrostat) 0.4 mg SL NOW STA Stop: 12/26/18 12:18 Last Admin: 12/26/18 12:20 Dose: 0.4 mg Nitroglycerin/Dextrose (Nitroglycerin/D5w 100 Mcg/Ml 20ml Syringe) Confirm Administered Dose 2,000 mcg .ROUTE .STK-MED ONE Stop: 12/26/18 12:32 Last Admin: 12/26/18 13:34 Dose: 2,000 mcg Ondansetron HCl (Zofran) Confirm Administered Dose 4 mg .ROUTE .STK-MED ONE Stop: 12/26/18 18:17 Last Admin: 12/26/18 18:18 Dose: 4 mg Ondansetron HCl (Zofran) 4 mg IV ONCE ONE Stop: 12/26/18 18:31 Last Admin: 12/26/18 18:35 Dose: 4 mg Ticagrelor (Brilinta) Confirm Administered Dose 180 mg PO .[employer] Mobile-MED ONE Stop: 12/26/18 12:28 Last Admin: 12/26/18 12:31 Dose: 180 mg Medical Decision Making Differential Diagnosis Differential diagnosis: acute TN, arrhythmia, PE, pneumothorax, CHF, aortic dissection Medical Records Attestation: I reviewed the patient's medical records. Home Medications Current Medication List: was personally reviewed by me Laboratory Data Attestation: I reviewed the patient's lab results. Result diagrams: 12/26/18 12:14 12/26/18 12:14 Lab Results 12/26/18 12/26/18 12/26/18 Range/Units 12:14 12:14 12:14 WBC 15.71 H (4.8-10.8) K/uL RBC 5.01 (4.7-6.1) M/uL Hgb 16.0 (14.0-18.0) g/dL POC Hgb (14.0-18.0) g/dl Hct 46.8 (42-52) % POC Hct (42-52) % MCV 93.4 (80-100) fL MCH 31.9 (25-34) pg MCHC 34.2 (32-36) g/dL RDW Std Deviation 46.7 H (36.4-46.3) fL RDW Coeff of Martínez 13.7 (11.5-14.5) % Plt Count 220 (130-400) K/uL MPV 10.8 H (7.4-10.4) fL Immature Gran % (Auto) 0.3 % Neut % (Auto) 70.4 % Lymph % (Auto) 21.7 % [place] % (Auto) 6.4 % Eos % (Auto) 1.0 % Baso % (Auto) 0.2 % Immature Gran # (Auto) 0.05 H (0.00-0.02) K/uL Neut # (Auto) 11.05 H (1.4-6.5) K/uL Lymph # (Auto) 3.41 H (1.2-3.4) K/uL [place] # (Auto) 1.01 H (0.11-0.59) K/uL Eos # (Auto) 0.16 (0-0.5) K/uL Baso # (Auto) 0.03 (0-0.2) K/uL PT 10.0 (9.0-12.0) Seconds INR 1.0 (0.9-1.1) APTT 27.8 (21.0-31.0) Seconds PTT Ratio 1.1 POC Sodium (135-144) mEq/L Sodium 134 L (136-145) mmol/L POC Potassium (3.3-5.0) mEq/L Potassium 3.5 (3.5-5.1) mmol/L POC Chloride (101-112) mEq/L Chloride 103 (98-107) mmol/L Carbon Dioxide 25 (21-32) mmol/L POC Total CO2 (24-31) mEq/l Anion Gap 6.0 (3-11) POC Anion Gap (16-25) mmol/L POC BUN (7-18) mg/dl BUN 12 (7-18) mg/dl Creatinine 1.01 (0.6-1.4) mg/dl POC Creatinine (0.6-1.3) mg/dl Est Cr Clr Drug Dosing 117.4 ml/min Est GFR ( Amer) 112.7 Est GFR (Non-Af Amer) 97.3 BUN/Creatinine Ratio 12.1 (10-20) Glucose 109 H (70-99) mg/dl POC Glucose (70-99) POC Glucose (other) Calcium 9.5 (8.5-10.1) mg/dl POC Ioniz Calcium Nigel (1.12-1.32) mmol/l Total Bilirubin 0.6 (0.2-1) mg/dl AST 28 (15-37) U/L ALT 37 (12-78) U/L Alkaline Phosphatase 74 (45-117) U/L POC Troponin I (0-0.045) ng/ml Troponin I 0.880 H* (0-0.045) ng/ml Total Protein 8.7 H (6.4-8.2) gm/dl Albumin 4.5 (3.4-5.0) gm/dl Globulin 4.2 H (2.5-4.0) gm/dl Albumin/Globulin Ratio 1.1 (0.9-2) Lipase 88 (73-393) U/L Nasal Screen MRSA (PCR) (Negative) 02/07/19 02/07/19 02/07/19 Range/Units 12:26 12:26 12:29 WBC (4.8-10.8) K/uL RBC (4.7-6.1) M/uL Hgb (14.0-18.0) g/dL POC Hgb 16.0 (14.0-18.0) g/dl Hct (42-52) % POC Hct 47 (42-52) % MCV (80-100) fL MCH (25-34) pg MCHC (32-36) g/dL RDW Std Deviation (36.4-46.3) fL RDW Coeff of Martínez (11.5-14.5) % Plt Count (130-400) K/uL MPV (7.4-10.4) fL Immature Gran % (Auto) % Neut % (Auto) % Lymph % (Auto) % [place] % (Auto) % Eos % (Auto) % Baso % (Auto) % Immature Gran # (Auto) (0.00-0.02) K/uL Neut # (Auto) (1.4-6.5) K/uL Lymph # (Auto) (1.2-3.4) K/uL [place] # (Auto) (0.11-0.59) K/uL Eos # (Auto) (0-0.5) K/uL Baso # (Auto) (0-0.2) K/uL PT (9.0-12.0) Seconds INR (0.9-1.1) APTT (21.0-31.0) Seconds PTT Ratio POC Sodium 140 (135-144) mEq/L Sodium (136-145) mmol/L POC Potassium 3.9 (3.3-5.0) mEq/L Potassium (3.5-5.1) mmol/L POC Chloride 101 (101-112) mEq/L Chloride (98-107) mmol/L Carbon Dioxide (21-32) mmol/L POC Total CO2 24 (24-31) mEq/l Anion Gap (3-11) POC Anion Gap 20.0 (16-25) mmol/L POC BUN 13 (7-18) mg/dl BUN (7-18) mg/dl Creatinine (0.6-1.4) mg/dl POC Creatinine 0.9 (0.6-1.3) mg/dl Est Cr Clr Drug Dosing ml/min Est GFR ( Amer) Est GFR (Non-Af Amer) BUN/Creatinine Ratio (10-20) Glucose (70-99) mg/dl POC Glucose 124 H (70-99) POC Glucose (other) TNP Calcium (8.5-10.1) mg/dl POC Ioniz Calcium Nigel 1.18 (1.12-1.32) mmol/l Total Bilirubin (0.2-1) mg/dl AST (15-37) U/L ALT (12-78) U/L Alkaline Phosphatase (45-117) U/L POC Troponin I 0.65 H (0-0.045) ng/ml Troponin I (0-0.045) ng/ml Total Protein (6.4-8.2) gm/dl Albumin (3.4-5.0) gm/dl Globulin (2.5-4.0) gm/dl Albumin/Globulin Ratio (0.9-2) Lipase (73-393) U/L Nasal Screen MRSA (PCR) (Negative) 12/26/18 12/26/18 Range/Units 14:00 15:37 WBC (4.8-10.8) K/uL RBC (4.7-6.1) M/uL Hgb (14.0-18.0) g/dL POC Hgb (14.0-18.0) g/dl Hct (42-52) % POC Hct (42-52) % MCV (80-100) fL MCH (25-34) pg MCHC (32-36) g/dL RDW Std Deviation (36.4-46.3) fL RDW Coeff of Martínez (11.5-14.5) % Plt Count (130-400) K/uL MPV (7.4-10.4) fL Immature Gran % (Auto) % Neut % (Auto) % Lymph % (Auto) % [place] % (Auto) % Eos % (Auto) % Baso % (Auto) % Immature Gran # (Auto) (0.00-0.02) K/uL Neut # (Auto) (1.4-6.5) K/uL Lymph # (Auto) (1.2-3.4) K/uL [place] # (Auto) (0.11-0.59) K/uL Eos # (Auto) (0-0.5) K/uL Baso # (Auto) (0-0.2) K/uL PT (9.0-12.0) Seconds INR (0.9-1.1) APTT (21.0-31.0) Seconds PTT Ratio POC Sodium (135-144) mEq/L Sodium (136-145) mmol/L POC Potassium (3.3-5.0) mEq/L Potassium (3.5-5.1) mmol/L POC Chloride (101-112) mEq/L Chloride (98-107) mmol/L Carbon Dioxide (21-32) mmol/L POC Total CO2 (24-31) mEq/l Anion Gap (3-11) POC Anion Gap (16-25) mmol/L POC BUN (7-18) mg/dl BUN (7-18) mg/dl Creatinine (0.6-1.4) mg/dl POC Creatinine (0.6-1.3) mg/dl Est Cr Clr Drug Dosing ml/min Est GFR ( Amer) Est GFR (Non-Af Amer) BUN/Creatinine Ratio (10-20) Glucose (70-99) mg/dl POC Glucose 130 H (70-99) POC Glucose (other) Calcium (8.5-10.1) mg/dl POC Ioniz Calcium Nigel (1.12-1.32) mmol/l Total Bilirubin (0.2-1) mg/dl AST (15-37) U/L ALT (12-78) U/L Alkaline Phosphatase (45-117) U/L POC Troponin I (0-0.045) ng/ml Troponin I (0-0.045) ng/ml Total Protein (6.4-8.2) gm/dl Albumin (3.4-5.0) gm/dl Globulin (2.5-4.0) gm/dl Albumin/Globulin Ratio (0.9-2) Lipase (73-393) U/L Nasal Screen MRSA (PCR) Negative (Negative) Imaging Data Attestation: I personally reviewed and interpreted this imaging study as follows : My Impression: Bedside chest x-ray per my review shows a normal aortic knob, no wide mediastinum, no CHF. Radiologist's Impression: Radiology results as stated below per my review and the radiologist's interpretation: XR chest 1V portable CLINICAL HISTORY: Chest Pain COMPARISON STUDY: Chest radiograph June 06, 2011. FINDINGS: Lung volumes are normal. There is no pneumothorax or pleural effusion. There is no consolidation or evidence for pulmonary edema. Cardiac size is normal. Mediastinal contours are normal. IMPRESSION: No acute cardiopulmonary findings. Electronically signed by: Bryce Patton M.D. 12/26/2018 12:36 PM ECG Data Attestation: I personally reviewed and interpreted this ECG as follows: Indication: chest pain Rate (beats per minute): 83 Rhythm: normal sinus Findings: + ST elevation (anteriorly and laterally with reciprocal changes inferiorly, consistent with acute TN) Blood Pressure Blood Pressure Findings: Elevated blood pressure Additional Comments: further management by Dr. Mooney MDM Narrative This patient comes in as described above. The nurse came and got me with the EKG which was very concerning for acute TN. I immediately went to the room. The patient was having chest pain and was diaphoretic, I called the heart alert immediately to expedite his care to the cardiac [facility] Site. In the meantime we established to large-bore IVs, he was given aspirin. He was kept on continuous cardiac monitoring and I monitored him very closely for any arrhythmia. Defibrillator pads were placed as well in the event there was a significant arrhythmia. I did further history and physical. he was hypertensive initially. he was given nitroglycerin SL x3 with this the pain did come down while we are waiting for the [facility] team to arrive. His chest x-ray shows no failure. there is a normal aortic knob and there is nothing to suggest widened mediastinum. His renal function i-STAT was normal his troponins mildly elevated. His i-STAT glucose failed and we did a fingerstick it was in the 120s. Dr. Mooney did arrive and is going to take the patient emergently to the [facility] for cardiac cath and further treatment. I did discuss the care at length with his friend who is at the bedside. Impression & Plan Acute myocardial infarction, Chest pain Critical Care Time I have personally spent greater than 30 minutes of critical care time in the direct management of this patient. This includes bedside care, interpretation of diagnostic studies, and testing, discussion with consultants, patient, and family members, and other required patient management activities. This 30 minutes is in excess of all separately billable procedures. Critical Care Time: Yes Total Critical Care Time: 30 (30) Discharge Plan Visit Data *Final* Discharge Date/Time: 12/26/18 12:43 Chief Complaint: Chest Pain Stated Complaint: chest pain tingling left arm jaw ED Provider: Erich Graham Discharge Problem: Acute myocardial infarction, Chest pain Patient Disposition: Admitted As Inpatient Discharge Instructions Interventions: ED Discharge Assessment Last Done: 12/26/18 12:43 The scribe's documentation has been prepared under my direction and personally reviewed by me in its entirety. I confirm that the note above accurately reflects all work, treatment, procedures, and medical decision making performed by me.
[2018-12-26] MEDS ORDERED: IBUPROFEN 200 MG TAB PO PRN (21:28)
--- NOTE | 2018-12-26 21:28 | History & Physical Report ---
Date of Service December 26, 2018 Assessment & Plan (1) Acute myocardial infarction: STEMI on EKG s/p cath on 12/26 Stent in proximal LAD Management as per cardiology (2) Tobacco use disorder: Pt would like a nicotine patch Advised that this will not be possible due to MT Can be ordered at discretion of cardiology (3) DVT prophylaxis: As per cardiology History of Present Illness Primary Care Provider: Osito Joel MD 33 y/o M who was admitted on 12/26 s/p cath with Dr. Mooney. Pt is doing well post cath for STEMI. Pt was a heart alert. He has had no further chest pain. No SOB. He had n/v earlier and has not eaten since his cath. Pt denies fever, abd pain, c/d, LE pain or swelling. He has hx of back pain and usually take advil at home for this. Allergies Allergy/AdvReac Type Severity Reaction Status Date / Time lactose Allergy Unknown . Unverified 02/23/18 19:24 shellfish derived Allergy Unknown . Unverified 02/23/18 19:24 Home Medications Home Medications Medication Instructions Recorded Confirmed Type CIPROFLOXACIN HCL (CIPRO) 500 mg PO BID #20 tab 02/23/18 Rx Past Med/Surg History Medical History No known health problems Surgical History No history of previous surgery Family History Other Aneurysm Cancer Diabetes Heart disease Hypertension Social History Current Living Situation: Significant Other Other Information That Helps Us Care for You: No Feels Safe at Home: Yes Safety Concerns: Feels Safe At This Time Smoking Status: Current every day smoker Tobacco Type: cigarettes Do You Dip or Chew Tobacco: No Second Hand Exposure: Yes Tobacco Cessation Education Requested by Patient: No Hx Alcohol Use: No Hx Substance Use: No Beliefs That Will Affect Care: None Communication Ability: Effective Hog Counter Required: No Review of Systems Pertinent positives and negatives reviewed in HPI--all others negative Physical Exam 2 Vital Signs (Past 24 Hours): Last Vital Signs Temp 36.8 C 12/26/18 20:00 Pulse 88 02/07/19 21:00 Resp 24 12/26/18 21:00 BP 116/69 12/26/18 21:00 Pulse Ox 98 12/26/18 21:00 Constitutional: WD/WN, vitals as above Eyes: normal visual ayala by confrontation and + anicteric sclerae Neck: normal visual inspection and trachea midline Respiratory: normal respiratory effort, lungs clear to auscultation Cardiovascular: Rate/Rhythm: regular rate and regular rhythm Gastrointestinal (Abdomen): Inspection/Auscultation: abdomen not distended Percussion/Palpation: abdomen soft; abdomen nontender Musculoskeletal: Head/Neck/Chest: normocephalic and head atraumatic negative for edema, peripheral pulses intact Skin: no rashes, warm and dry Neurologic: awake; not confused Speech / Cognition: normal speech Psychiatric: A+Ox3, euthymic affect _ (1) Acute myocardial infarction Involved coronary artery: unspecified coronary artery Myocardial infarction type: ST elevation myocardial infarction Qualified Code(s): I21.3 - ST elevation (STEMI) myocardial infarction of unspecified site
[2018-12-26] MEDS: TICAGRELOR 90 MG TAB PO SCH (23:22)
[2018-12-27] MEDS ORDERED: ONDANSETRON INJ 2 MG/ML 2 ML VIAL IV PRN
[2018-12-27 02:02] LABS: Basophils # (auto) 0.01 K/uL (0-0.2); Basophils % (auto) 0.1 %; Eosinophils # (auto) 0.12 K/uL (0-0.5); Eosinophils % (auto) 0.8 %; Hematocrit (blood only) 41.2 % (42-52); Hemoglobin 14.3 g/dL (14.0-18.0); Immature Granulocytes # (auto) 0.06 K/uL (0.00-0.02); Immature Granulocytes % (auto) 0.4 %; Lymphocytes % (auto) 16.1 %; Mean Corpuscular Hgb Conc 34.7 g/dL (32-36); Mean Corpuscular Volume 93.8 fL (80-100); Monocytes # (auto) 1.28 K/uL (0.11-0.59); Monocytes % (auto) 8.2 %; Neutrophils # (auto) 11.58 K/uL (1.4-6.5); Neutrophils % (auto) 74.4 %; Platelet Count 192 K/uL (130-400); RDW Coefficient of Variation 13.7 % (11.5-14.5); RDW Standard Deviation 47.1 fL (36.4-46.3); Red Blood Count 4.39 M/uL (4.7-6.1); White Blood Count 15.55 K/uL (4.8-10.8)
[2018-12-27 06:19] LABS: Estimated Average Glucose 120 mg/dl
--- NOTE | 2018-12-27 07:43 | Critical Care Progress Note ---
Date of Service December 27, 2018 Assessment & Plan (1) STEMI (ST elevation myocardial infarction): 33-year-old male was admitted on 27 December 2018 for chest pain and STEMI. 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 No acute issues. Tylenol and morphine as needed for pain. Pulm: No known acute issues. pCXR non-acute. Smoking cessation counseling. CVS: Anterior STEMI on initial EKG, post-cath NSR 77. PCI of proximal to mid LAD with single MATTEO. Given ticagrelor. Post-cath echo EF 45%, mild concentric LVH, LAD distribution wall motion abnormality. TnI trending down. On aspirin, Lipitor, Lopressor, lisinopril. ID: Afebrile, WBCs stable around 15. No known acute issues. Endo: No known DM or thyroid disease. HbA1c 5.8. Monitoring blood sugars. Renal/Lytes: Normal creatinine and electrolytes. Monitoring. GI: No known acute issues. Heart healthy diet. Heme: Normal hemoglobin. No known acute issues. DVT prophy: SCDs. Lines: PIV. Code status: Full code PT/OT: Deferred. Disposition: Admitted to the ICU following his PCI. Goal for downgrade to telemetry (2) Tobacco use disorder: Supervising Physician Co-Signing Physician Notes Resident Physician Supervision Note: I was present with Dr. Whitfield during the history and exam. I discussed the case with the resident and agree with the findings and plan as documented in the note. Any exceptions or clarifications are listed here: The patient is overall doing much better and will be transferred to the telemetry. Documented By: Lizbet Ventura Subjective Found patient sitting up in his bed, watching TV. Overall he says he feels quite well he says he has a bit of a sore back which she attributes to laying down too much. Had some nausea overnight, resolved, tolerating diet. He denies any chest pain, shortness of breath, or any other acute concerns. Physical Exam 2 Vital Signs (Past 24 Hours): Last Vital Signs Temp 36.7 C 12/27/18 01:00 Pulse 85 12/27/18 06:00 Resp 20 12/27/18 06:00 BP 124/56 L 12/27/18 06:00 Pulse Ox 97 12/27/18 06:00 Physical Exam: General Appearance: Awake, alert & oriented, comfortable in general, NAD. CV: +S1S2 RRR, no murmur. Pulm: Clear to auscultation throughout. Abdomen: +BS, soft, non-tender, non-distended. Extremities: No pedal edema or calf tenderness. Moving all extremities naturally and easily. Right wrist cath site dressed, c/d/I, with no notable underlying edema Neuro: No gross neuro deficits. Results & Data Laboratory Results 12/27/18 12/27/18 12/27/18 Range/Units 07:35 01:55 01:55 WBC 15.55 H (4.8-10.8) K/uL RBC 4.39 L (4.7-6.1) M/uL Hgb 14.3 (14.0-18.0) g/dL POC Hgb (14.0-18.0) g/dl Hct 41.2 L (42-52) % POC Hct (42-52) % MCV 93.8 (80-100) fL MCH 32.6 (25-34) pg MCHC 34.7 (32-36) g/dL RDW Std Deviation 47.1 H (36.4-46.3) fL RDW Coeff of Martínez 13.7 (11.5-14.5) % Plt Count 192 (130-400) K/uL MPV 10.0 (7.4-10.4) fL Immature Gran % (Auto) 0.4 % Neut % (Auto) 74.4 % Lymph % (Auto) 16.1 % [place] % (Auto) 8.2 % Eos % (Auto) 0.8 % Baso % (Auto) 0.1 % Immature Gran # (Auto) 0.06 H (0.00-0.02) K/uL Neut # (Auto) 11.58 H (1.4-6.5) K/uL Lymph # (Auto) 2.50 (1.2-3.4) K/uL [place] # (Auto) 1.28 H (0.11-0.59) K/uL Eos # (Auto) 0.12 (0-0.5) K/uL Baso # (Auto) 0.01 (0-0.2) K/uL PT (9.0-12.0) Seconds INR (0.9-1.1) APTT (21.0-31.0) Seconds PTT Ratio Activ Coag Time Kaolin (94-140) SECONDS POC Sodium (135-144) mEq/L Sodium Pending (136-145) mmol/L POC Potassium (3.3-5.0) mEq/L Potassium Pending (3.5-5.1) mmol/L POC Chloride (101-112) mEq/L Chloride Pending (98-107) mmol/L Carbon Dioxide Pending (21-32) mmol/L POC Total CO2 (24-31) mEq/l Anion Gap Pending (3-11) POC Anion Gap (16-25) mmol/L POC BUN (7-18) mg/dl BUN Pending (7-18) mg/dl Creatinine Pending (0.6-1.4) mg/dl POC Creatinine (0.6-1.3) mg/dl Est Cr Clr Drug Dosing Pending ml/min Est GFR ( Amer) Pending Est GFR (Non-Af Amer) Pending BUN/Creatinine Ratio Pending (10-20) Glucose Pending (70-99) mg/dl POC Glucose (70-99) POC Glucose (other) Estimat Average Glucose 120 mg/dl Hemoglobin A1c 5.8 H (4.5-5.6) % Calcium Pending (8.5-10.1) mg/dl POC Ioniz Calcium Nigel (1.12-1.32) mmol/l Total Bilirubin (0.2-1) mg/dl AST (15-37) U/L ALT (12-78) U/L Alkaline Phosphatase (45-117) U/L POC Troponin I (0-0.045) ng/ml Troponin I (0-0.045) ng/ml Total Protein (6.4-8.2) gm/dl Albumin (3.4-5.0) gm/dl Globulin (2.5-4.0) gm/dl Albumin/Globulin Ratio (0.9-2) Triglycerides (0-150) mg/dl Cholesterol (0-200) mg/dl LDL Cholesterol, Calc mg/dl VLDL Cholesterol, Calc mg/dl HDL Cholesterol mg/dl Cholesterol/HDL Ratio Lipase (73-393) U/L Nasal Screen MRSA (PCR) (Negative) 02/08/19 02/07/19 02/07/19 Range/Units 01:55 20:04 15:37 WBC (4.8-10.8) K/uL RBC (4.7-6.1) M/uL Hgb (14.0-18.0) g/dL POC Hgb (14.0-18.0) g/dl Hct (42-52) % POC Hct (42-52) % MCV (80-100) fL MCH (25-34) pg MCHC (32-36) g/dL RDW Std Deviation (36.4-46.3) fL RDW Coeff of Martínez (11.5-14.5) % Plt Count (130-400) K/uL MPV (7.4-10.4) fL Immature Gran % (Auto) % Neut % (Auto) % Lymph % (Auto) % [place] % (Auto) % Eos % (Auto) % Baso % (Auto) % Immature Gran # (Auto) (0.00-0.02) K/uL Neut # (Auto) (1.4-6.5) K/uL Lymph # (Auto) (1.2-3.4) K/uL [place] # (Auto) (0.11-0.59) K/uL Eos # (Auto) (0-0.5) K/uL Baso # (Auto) (0-0.2) K/uL PT (9.0-12.0) Seconds INR (0.9-1.1) APTT (21.0-31.0) Seconds PTT Ratio Activ Coag Time Kaolin (94-140) SECONDS POC Sodium (135-144) mEq/L Sodium (136-145) mmol/L POC Potassium (3.3-5.0) mEq/L Potassium (3.5-5.1) mmol/L POC Chloride (101-112) mEq/L Chloride (98-107) mmol/L Carbon Dioxide (21-32) mmol/L POC Total CO2 (24-31) mEq/l Anion Gap (3-11) POC Anion Gap (16-25) mmol/L POC BUN (7-18) mg/dl BUN (7-18) mg/dl Creatinine (0.6-1.4) mg/dl POC Creatinine (0.6-1.3) mg/dl Est Cr Clr Drug Dosing ml/min Est GFR ( Amer) Est GFR (Non-Af Amer) BUN/Creatinine Ratio (10-20) Glucose (70-99) mg/dl POC Glucose 130 H (70-99) POC Glucose (other) Estimat Average Glucose mg/dl Hemoglobin A1c (4.5-5.6) % Calcium (8.5-10.1) mg/dl POC Ioniz Calcium Nigel (1.12-1.32) mmol/l Total Bilirubin (0.2-1) mg/dl AST (15-37) U/L ALT (12-78) U/L Alkaline Phosphatase (45-117) U/L POC Troponin I (0-0.045) ng/ml Troponin I 118.000 H* 126.000 H* (0-0.045) ng/ml Total Protein (6.4-8.2) gm/dl Albumin (3.4-5.0) gm/dl Globulin (2.5-4.0) gm/dl Albumin/Globulin Ratio (0.9-2) Triglycerides 87 (0-150) mg/dl Cholesterol 164 (0-200) mg/dl LDL Cholesterol, Calc 114 mg/dl VLDL Cholesterol, Calc 17 mg/dl HDL Cholesterol 33 mg/dl Cholesterol/HDL Ratio 5 Lipase (73-393) U/L Nasal Screen MRSA (PCR) (Negative) 12/26/18 12/26/18 12/26/18 Range/Units 14:00 12:56 12:29 WBC (4.8-10.8) K/uL RBC (4.7-6.1) M/uL Hgb (14.0-18.0) g/dL POC Hgb (14.0-18.0) g/dl Hct (42-52) % POC Hct (42-52) % MCV (80-100) fL MCH (25-34) pg MCHC (32-36) g/dL RDW Std Deviation (36.4-46.3) fL RDW Coeff of Martínez (11.5-14.5) % Plt Count (130-400) K/uL MPV (7.4-10.4) fL Immature Gran % (Auto) % Neut % (Auto) % Lymph % (Auto) % [place] % (Auto) % Eos % (Auto) % Baso % (Auto) % Immature Gran # (Auto) (0.00-0.02) K/uL Neut # (Auto) (1.4-6.5) K/uL Lymph # (Auto) (1.2-3.4) K/uL [place] # (Auto) (0.11-0.59) K/uL Eos # (Auto) (0-0.5) K/uL Baso # (Auto) (0-0.2) K/uL PT (9.0-12.0) Seconds INR (0.9-1.1) APTT (21.0-31.0) Seconds PTT Ratio Activ Coag Time Kaolin 268 H (94-140) SECONDS POC Sodium (135-144) mEq/L Sodium (136-145) mmol/L POC Potassium (3.3-5.0) mEq/L Potassium (3.5-5.1) mmol/L POC Chloride (101-112) mEq/L Chloride (98-107) mmol/L Carbon Dioxide (21-32) mmol/L POC Total CO2 (24-31) mEq/l Anion Gap (3-11) POC Anion Gap (16-25) mmol/L POC BUN (7-18) mg/dl BUN (7-18) mg/dl Creatinine (0.6-1.4) mg/dl POC Creatinine (0.6-1.3) mg/dl Est Cr Clr Drug Dosing ml/min Est GFR ( Amer) Est GFR (Non-Af Amer) BUN/Creatinine Ratio (10-20) Glucose (70-99) mg/dl POC Glucose 124 H (70-99) POC Glucose (other) Estimat Average Glucose mg/dl Hemoglobin A1c (4.5-5.6) % Calcium (8.5-10.1) mg/dl POC Ioniz Calcium Nigel (1.12-1.32) mmol/l Total Bilirubin (0.2-1) mg/dl AST (15-37) U/L ALT (12-78) U/L Alkaline Phosphatase (45-117) U/L POC Troponin I (0-0.045) ng/ml Troponin I (0-0.045) ng/ml Total Protein (6.4-8.2) gm/dl Albumin (3.4-5.0) gm/dl Globulin (2.5-4.0) gm/dl Albumin/Globulin Ratio (0.9-2) Triglycerides (0-150) mg/dl Cholesterol (0-200) mg/dl LDL Cholesterol, Calc mg/dl VLDL Cholesterol, Calc mg/dl HDL Cholesterol mg/dl Cholesterol/HDL Ratio Lipase (73-393) U/L Nasal Screen MRSA (PCR) Negative (Negative) 12/26/18 12/26/18 12/26/18 Range/Units 12:26 12:26 12:14 WBC (4.8-10.8) K/uL RBC (4.7-6.1) M/uL Hgb (14.0-18.0) g/dL POC Hgb 16.0 (14.0-18.0) g/dl Hct (42-52) % POC Hct 47 (42-52) % MCV (80-100) fL MCH (25-34) pg MCHC (32-36) g/dL RDW Std Deviation (36.4-46.3) fL RDW Coeff of Martínez (11.5-14.5) % Plt Count (130-400) K/uL MPV (7.4-10.4) fL Immature Gran % (Auto) % Neut % (Auto) % Lymph % (Auto) % [place] % (Auto) % Eos % (Auto) % Baso % (Auto) % Immature Gran # (Auto) (0.00-0.02) K/uL Neut # (Auto) (1.4-6.5) K/uL Lymph # (Auto) (1.2-3.4) K/uL [place] # (Auto) (0.11-0.59) K/uL Eos # (Auto) (0-0.5) K/uL Baso # (Auto) (0-0.2) K/uL PT 10.0 (9.0-12.0) Seconds INR 1.0 (0.9-1.1) APTT 27.8 (21.0-31.0) Seconds PTT Ratio 1.1 Activ Coag Time Kaolin (94-140) SECONDS POC Sodium 140 (135-144) mEq/L Sodium (136-145) mmol/L POC Potassium 3.9 (3.3-5.0) mEq/L Potassium (3.5-5.1) mmol/L POC Chloride 101 (101-112) mEq/L Chloride (98-107) mmol/L Carbon Dioxide (21-32) mmol/L POC Total CO2 24 (24-31) mEq/l Anion Gap (3-11) POC Anion Gap 20.0 (16-25) mmol/L POC BUN 13 (7-18) mg/dl BUN (7-18) mg/dl Creatinine (0.6-1.4) mg/dl POC Creatinine 0.9 (0.6-1.3) mg/dl Est Cr Clr Drug Dosing ml/min Est GFR ( Amer) Est GFR (Non-Af Amer) BUN/Creatinine Ratio (10-20) Glucose (70-99) mg/dl POC Glucose (70-99) POC Glucose (other) TNP Estimat Average Glucose mg/dl Hemoglobin A1c (4.5-5.6) % Calcium (8.5-10.1) mg/dl POC Ioniz Calcium Nigel 1.18 (1.12-1.32) mmol/l Total Bilirubin (0.2-1) mg/dl AST (15-37) U/L ALT (12-78) U/L Alkaline Phosphatase (45-117) U/L POC Troponin I 0.65 H (0-0.045) ng/ml Troponin I (0-0.045) ng/ml Total Protein (6.4-8.2) gm/dl Albumin (3.4-5.0) gm/dl Globulin (2.5-4.0) gm/dl Albumin/Globulin Ratio (0.9-2) Triglycerides (0-150) mg/dl Cholesterol (0-200) mg/dl LDL Cholesterol, Calc mg/dl VLDL Cholesterol, Calc mg/dl HDL Cholesterol mg/dl Cholesterol/HDL Ratio Lipase (73-393) U/L Nasal Screen MRSA (PCR) (Negative) 12/26/18 12/26/18 Range/Units 12:14 12:14 WBC 15.71 H (4.8-10.8) K/uL RBC 5.01 (4.7-6.1) M/uL Hgb 16.0 (14.0-18.0) g/dL POC Hgb (14.0-18.0) g/dl Hct 46.8 (42-52) % POC Hct (42-52) % MCV 93.4 (80-100) fL MCH 31.9 (25-34) pg MCHC 34.2 (32-36) g/dL RDW Std Deviation 46.7 H (36.4-46.3) fL RDW Coeff of Martínez 13.7 (11.5-14.5) % Plt Count 220 (130-400) K/uL MPV 10.8 H (7.4-10.4) fL Immature Gran % (Auto) 0.3 % Neut % (Auto) 70.4 % Lymph % (Auto) 21.7 % [place] % (Auto) 6.4 % Eos % (Auto) 1.0 % Baso % (Auto) 0.2 % Immature Gran # (Auto) 0.05 H (0.00-0.02) K/uL Neut # (Auto) 11.05 H (1.4-6.5) K/uL Lymph # (Auto) 3.41 H (1.2-3.4) K/uL [place] # (Auto) 1.01 H (0.11-0.59) K/uL Eos # (Auto) 0.16 (0-0.5) K/uL Baso # (Auto) 0.03 (0-0.2) K/uL PT (9.0-12.0) Seconds INR (0.9-1.1) APTT (21.0-31.0) Seconds PTT Ratio Activ Coag Time Kaolin (94-140) SECONDS POC Sodium (135-144) mEq/L Sodium 134 L (136-145) mmol/L POC Potassium (3.3-5.0) mEq/L Potassium 3.5 (3.5-5.1) mmol/L POC Chloride (101-112) mEq/L Chloride 103 (98-107) mmol/L Carbon Dioxide 25 (21-32) mmol/L POC Total CO2 (24-31) mEq/l Anion Gap 6.0 (3-11) POC Anion Gap (16-25) mmol/L POC BUN (7-18) mg/dl BUN 12 (7-18) mg/dl Creatinine 1.01 (0.6-1.4) mg/dl POC Creatinine (0.6-1.3) mg/dl Est Cr Clr Drug Dosing 117.4 ml/min Est GFR ( Amer) 112.7 Est GFR (Non-Af Amer) 97.3 BUN/Creatinine Ratio 12.1 (10-20) Glucose 109 H (70-99) mg/dl POC Glucose (70-99) POC Glucose (other) Estimat Average Glucose mg/dl Hemoglobin A1c (4.5-5.6) % Calcium 9.5 (8.5-10.1) mg/dl POC Ioniz Calcium Nigel (1.12-1.32) mmol/l Total Bilirubin 0.6 (0.2-1) mg/dl AST 28 (15-37) U/L ALT 37 (12-78) U/L Alkaline Phosphatase 74 (45-117) U/L POC Troponin I (0-0.045) ng/ml Troponin I 0.880 H* (0-0.045) ng/ml Total Protein 8.7 H (6.4-8.2) gm/dl Albumin 4.5 (3.4-5.0) gm/dl Globulin 4.2 H (2.5-4.0) gm/dl Albumin/Globulin Ratio 1.1 (0.9-2) Triglycerides (0-150) mg/dl Cholesterol (0-200) mg/dl LDL Cholesterol, Calc mg/dl VLDL Cholesterol, Calc mg/dl HDL Cholesterol mg/dl Cholesterol/HDL Ratio Lipase 88 (73-393) U/L Nasal Screen MRSA (PCR) (Negative) Medications Administered Current Inpatient Medications Acetaminophen (Tylenol) 650 mg PO Q4H PRN PRN Reason: Mild Pain (scale 1-3) Stop: 01/25/19 13:51 Aspirin (Ecotrin Ectab) 81 mg PO [facility] Stop: 01/26/19 08:59 Atorvastatin Calcium (Lipitor) 80 mg PO [facility] Stop: 01/26/19 08:59 Ibuprofen (Advil) 400 mg PO QID PRN PRN Reason: Mild Pain Stop: 01/25/19 21:27 Lisinopril (Zestril) 5 mg PO [facility] Stop: 01/26/19 08:59 Last Admin: 12/26/18 17:39 Dose: 5 mg Lorazepam (Ativan) 0.5 mg PO Q4H PRN PRN Reason: Anxiety Stop: 01/25/19 18:02 Metoprolol Tartrate (Lopressor) 25 mg PO BID [facility] Stop: 01/25/19 20:59 Last Admin: 12/26/18 16:09 Dose: 25 mg Miscellaneous (Icu Protocol For Hyperglycemia) 1 ea N/A PRN PRN; Protocol PRN Reason: Hyperglycemia Protocol Stop: 12/28/18 13:34 Morphine Sulfate (Morphine Sulfate) 2 mg IV Q4H PRN PRN Reason: Pain Stop: 01/09/19 18:02 Ondansetron HCl (Zofran) 4 mg IV Q6H PRN PRN Reason: Nausea Stop: 01/26/19 00:00 Ticagrelor (Brilinta) 90 mg PO BID [facility] Stop: 01/25/19 20:59 Last Admin: 12/26/18 23:22 Dose: 90 mg Resident Activity Tracking Resident Involvement: Resident Care Provided Care Provided: Adult Hospital Medicine
[2018-12-27 08:00] LABS: BUN Creatinine Ratio 10.1 (10-20); Calcium 8.8 mg/dl (8.5-10.1); Creatinine Clr Calc Pharmacy 151.7 ml/min; Est GFR (African American) 138.9; Est GFR (Non-African American) 119.9; Potassium 3.9 mmol/L (3.5-5.1)
[2018-12-27] MEDS: TICAGRELOR 90 MG TAB PO SCH ×2 (08:57→21:05)
[2018-12-27] MEDS: ATORVASTATIN 40 MG TAB PO SCH (08:57)
[2018-12-27] MEDS: ASPIRIN 81 MG ECTAB PO SCH (08:58)
[2018-12-27] MEDS: METOPROLOL TARTRATE 25 MG TAB PO SCH ×2 (08:58→21:06)
[2018-12-27] MEDS: LISINOPRIL 5 MG TAB PO SCH (09:39)
--- NOTE | 2018-12-27 10:55 | Cardiology Progress Note ---
Date of Service December 27, 2018 Assessment & Plan (1) STEMI (ST elevation myocardial infarction): 2. Ischemic cardiomyopathy 3. Hypertension 4. Ongoing tobacco abuse 5. Anxiety Patient chest pain-free, hemodynamically and electrically stable. Troponin is peaked. Mild to moderate LV dysfunction on echocardiogram yesterday. On exam today no signs of heart failure, no apparent access site complications. Going forward: Continue dual anti-platelet therapy with aspirin, ticagrelor Continue current JEREMY inhibitor, titrate beta-juan miguel as BP allows High intensity statin Nicotine patch From a cardiac standpoint patient doing well okay to transfer to telemetry today. Possible discharge home tomorrow. Subjective Patient feeling well this morning. Up walking around his room. Denies any chest pain. Nausea is resolved. No significant shortness of breath. No other new concerns. Telemetry reviewedno events Review of Systems 10 point review of systems was completed and was otherwise negative unless stated in HPI Physical Exam 2 Vital Signs (Past 24 Hours): Last Vital Signs Temp 36.9 C 12/27/18 08:00 Pulse 86 12/27/18 10:00 Resp 22 12/27/18 10:00 BP 126/78 12/27/18 10:00 Pulse Ox 98 12/27/18 10:00 Physical Exam: General: Comfortable, no acute distress Eyes: Sclerae anicteric, extraocular movements intact HENT: Oropharynx clear mucous membranes moist Neck: Normal carotid upstrokes, no bruits. No JVD. Lungs: Clear to auscultation bilaterally, no rhonchi or wheezes Cardiac: Regular rate and rhythm, no murmurs, rubs or gallops. Vascular: Right radial artery access site with no ecchymosis, hematoma. Distal pulse and sensation intact. Abdomen: Soft, nontender, nondistended, positive bowel sounds. Extremities: Well perfused, no peripheral edema Skin: No rashes or lesions. Neuro: Nonfocal Psych: Alert orient x3, normal affect and mood
[2018-12-27] MEDS: NICOTINE 14 MG/24 HR PATCH TD SCH (11:25)
[2018-12-28 06:24] LABS: BUN Creatinine Ratio 17.1 (10-20); Calcium 8.8 mg/dl (8.5-10.1); Creatinine Clr Calc Pharmacy 150.2 ml/min; Est GFR (African American) 137.5; Est GFR (Non-African American) 118.6
[2018-12-28] MEDS: METOPROLOL TARTRATE 25 MG TAB PO SCH (08:58)
[2018-12-28] MEDS: ATORVASTATIN 40 MG TAB PO SCH (08:58)
[2018-12-28] MEDS: ASPIRIN 81 MG ECTAB PO SCH (08:58)
[2018-12-28] MEDS: LISINOPRIL 5 MG TAB PO SCH (08:58)
[2018-12-28] MEDS: NICOTINE 14 MG/24 HR PATCH TD SCH (08:59)
--- NOTE | 2018-12-28 09:03 | Cardiology Progress Note ---
Date of Service December 28, 2018 Assessment & Plan (1) STEMI (ST elevation myocardial infarction): He is doing well post SC, no heart failure and no recurrent chest discomfort.. (2) CAD (coronary artery disease): He has coronary disease at a very young age without terribly abnormal lipid profile. I reviewed risk factor modification with him and his , he needs to be on a good diet and I recommended the Mediterranean diet, he needs to stop smoking and he needs to take his medications as directed. Hopefully this will help minimize further progression. (3) Tobacco use disorder: 1 he needs to stop smoking, he is prescribed transdermal NicoDerm. He seems intent on being able to stop. Subjective He is feeling well today, no further chest pain or GI complaints. Physical Exam 2 Vital Signs (Past 24 Hours): Last Vital Signs Temp 36.7 C 12/28/18 07:51 Pulse 80 12/28/18 07:51 Resp 20 12/28/18 07:51 BP 119/63 12/28/18 07:51 Pulse Ox 95 12/28/18 03:06 Physical Exam: Constitutional: Alert, cooperative and in no distress. Pulmonary: Clear to auscultation bilaterally. Cardiac: Regular rhythm with no murmur, gallop or rub. Abdomen: Soft, nontender with normal bowel sounds. Extremities: No edema. Skin: No rash, ecchymoses or petechiae. Results & Data Diagnostic Findings Telemetry: Sinus rhythm, no significant arrhythmia
[2018-12-28] MEDS: TICAGRELOR 90 MG TAB PO SCH (09:26)
--- NOTE | 2018-12-30 07:55 | Discharge Summary ---
Date of Service December 30, 2018 Admission HPI Per Admitting Provider 33 y/o M who was admitted on 12/26 with anterior STEMI. Patient presented after approximately 2 hours of chest pain. Taken emergently for primary PCI. Specialty Data Cardiology Cardiac cath/PCI 12/26/2018: 1. Anterior STEMI/Occluded proximal LAD 2. Mild to moderate non-culprit coronary artery disease -30-40% mid large dominant circumflex 3. Normal intracardiac filling pressure 4. Successful PCI of proximal to mid LAD with single drug-eluting stent (4.0 x 34 mm Branscomb; postdilated with 4.5 NC). Echo 12/26/2018: LVEF 45%, LAD distribution wall motion abnormality. No significant valvular pathology. Discharge Data Consultations 12/26/18 13:41 Consult Key Bed Installer Routine Procedures Performed Operation Date: 12/26/18 12:30 Actual Procedures p Cardiac Heart Alert - Raymundo Mooney MD p Aspiration/PCI w/MATTEO for Stemi - Raymundo Mooney MD s Cath, Left w/Cors Vent Grafts - Raymundo Mooney MD s Cineradiography w/Routine Exam - Raymundo Mooney MD s IVUS Coronary Single Vessel - Raymundo Mooney MD Hospital Course (1) STEMI (ST elevation myocardial infarction): Patient underwent successful primary PCI for anterior STEMI with single MATTEO placed across proximal LAD occlusion. Procedure uncomplicated. Admitted to ICU post procedure. No recurrent chest pain and remained hemodynamically and electrically stable. Troponin peaked at 126. Echo showed mild LV dysfunction with EF 45-50% and LAD distribution wall motion abnormalities. Discharged to home on Hospital day 3. Home on DAPT with aspirin and Ticagrelor. Follow-up with Dr. Mooney in 2 weeks. Discharge Instructions Home Medications aspirin [Ecotrin Low Strength] 81 mg PO QAM #30 tab 12/28/18 [Rx] atorvastatin 80 mg PO HS #30 tab 12/28/18 [Rx] lisinopril [Zestril] 5 mg PO QAM 30 Days #30 tab 12/28/18 [Rx] metoprolol tartrate 25 mg PO BID 30 Days #60 tab 12/28/18 [Rx] nicotine [Nicoderm CQ] 14 mg TRANSDERMAL QAM 30 Days #30 ea 12/28/18 [Rx] ticagrelor 90 mg PO BID 30 Days #60 tab 12/28/18 [Rx]
== END 2018-12-28 09:51 | disposition home or self-care (01) | DRG 247 ==
LOC: ED 12:04 → CC 12:41 → 1E 12:43 → 2E 12-27 10:47